=== PATIENT | male | born 1990 | race Caucasian/White ===

== ENCOUNTER 2019-12-24 09:25 | Inpatient (IN) ==
[2019-12-24] MEDS ORDERED: IOPAMIDOL 100 ML BOTTLE IV ONE (09:26)
[2019-12-24] MEDS ORDERED: ONDANSETRON 4 MG/2 ML VIAL IV ONE (09:44)
--- NOTE | 2019-12-24 09:50 | Emergency Department Note ---
Abdominal Pain HPI General Chief Complaint: Abdominal Pain Stated Complaint: abd pain Time Seen by Provider: 12/24/19 09:40 Source: patient Mode of arrival: ambulatory Limitations: no limitations History of Present Illness HPI Narrative: This patient has been having difficulty with abdominal pain and thought it was had constipation for about the last week. He has been having trouble having bowel movements. He has tried GoLYTELY and mag citrate without much results. He has been having some watery effluent but not full stool. He had an x-ray yesterday minor care which showed some gas and may be some stool. He continues to have gas and bloating and slight nausea. Related Data Home Medications Medication Instructions Recorded Confirmed cetirizine 10 mg tablet 10 mg PO QDAY 01/13/19 11/01/19 diphenhydramine HCl 50 mg PO HS 07/08/19 11/01/19 loratadine 10 mg PO DAILY 07/08/19 11/01/19 sertraline 25 mg PO HS 07/08/19 11/01/19 Previous Rx's Medication Instructions Recorded hydroxyzine HCl 25 mg tablet 25 mg PO TID PRN #60 tab 02/08/19 ondansetron 4 mg disintegrating 4 mg PO Q6H PRN #10 tab 12/23/19 tablet Allergies Allergy/AdvReac Type Severity Reaction Status Date / Time hay fever Allergy Unknown Nasal Uncoded 11/01/19 14:54 Discharge Review of Systems All systems ED: reviewed and negative except as stated. [facility] Medical/Surgical/Family History All Active Problems (Updated 12/24/19 @ 12:30 by Dequan Randle MD) Acute hyponatremia (Acute) Acute hypokalemia (Acute) Ankle sprain and strain (Acute) Scoliosis (Chronic) Strain of lumbar paraspinal muscle (Chronic) Constipation (Chronic) Allergic rhinitis (Acute) Marijuana use (Chronic) Tic disorder (Chronic) Chronic sinusitis (Chronic) Infantile cerebral palsy (Chronic) Kidney stones (Chronic) Anxiety (Chronic) Medical History (Updated 12/24/19 @ 12:30 by Dequan Randle MD) Anxiety (Chronic) Chronic sinusitis (Chronic) Infantile cerebral palsy (Chronic) Kidney stones (Chronic) Marijuana use (Chronic) Tic disorder (Chronic) Surgical History H/O eye surgery (Chronic) Bilateral surgery due to strabismus H/O inguinal hernia repair (Chronic) as infant Family History Mother Arthritis Grandmother Hypertension, essential Maternal Thyroid disease Maternal Grandfather Heart attack Maternal Unknown Allergic rhinitis Diabetes Heart disease Social History Smoking Status: Never smoker Alcohol Intake Frequency: does not drink Substance Use: marijuana Exam General Limitations: no limitations Head Head: atraumatic Eye Eye: Present normal appearance ENT ENT: Present normal exam Chest Chest: Present normal inspection Respiratory Respiratory: Present normal lung sounds bilaterally Cardiovascular Cardiovascular: Present regular rate, normal rhythm and normal heart sounds Adbominal Abdominal: Present soft, distention, tenderness and hyperactive bowel sounds; Absent guarding, rebound, rigidity and organomegaly Expanded Abdominal Abdominal Tenderness: Present diffuse and mild Neurological Neurological: Present alert Psychiatric Psychiatric: Present normal affect Skin Skin: Present warm and dry Course Vital Signs Vital signs: Vital Signs Temperature 96.7 F L 12/24/19 09:25 Pulse Rate 95 H 12/24/19 09:25 Respiratory Rate 16 12/24/19 09:25 Blood Pressure 128/86 12/24/19 09:25 Pulse Oximetry (%) 97 12/24/19 09:25 Temperature 96.7 F L 12/24/19 09:25 Pulse Rate 83 12/24/19 12:06 Respiratory Rate 16 12/24/19 09:25 Blood Pressure 150/89 12/24/19 12:06 Pulse Oximetry (%) 98 12/24/19 12:06 [facility] Lab Data Lab results reviewed: Yes I reviewed the patient's lab results. Lab results narrative: Patient CT scan was unremarkable but his sodium was 120 and potassium 2.8. I discussed this case with the hospitalist and he will admit him observation to correct his electrolytes. Result diagrams: 12/24/19 09:59 12/24/19 09:59 Labs: Lab Results 12/24/19 12/24/19 Range/Units 09:59 09:59 WBC 12.3 H (4.50-11.00) K/mcL RBC 4.13 L (4.63-6.08) M/mcL Hgb 12.1 L (13.7-17.5) g/dL Hct 32.7 L (40.1-51.0) % MCV 79.2 L (80.0-100.0) fL MCH 29.3 (26.0-34.0) pg MCHC 37.0 H (31.0-36.0) g/dL RDW 11.8 (11.5-14.5) % Plt Count 256 (140-440) K/mcL MPV 10.2 (7.4-10.4) fL Gran % 81.8 H (38.0-78.0) % Lymph % (Auto) 8.6 L (15.5-49.0) % [place] % (Auto) 9.3 (1.0-12.0) % Eos % (Auto) 0.1 (0.0-7.0) % Baso % (Auto) 0.2 (0.0-2.0) % Gran # 10.09 H (1.80-8.00) K/mcL Lymph # (Auto) 1.06 L (1.50-4.80) K/mcL [place] # (Auto) 1.14 H (0.10-0.90) K/mcL Eos # (Auto) 0.01 (0.00-0.70) K/mcL Baso # (Auto) 0.02 (0.00-0.30) K/mcL Sodium 120 L (133-145) mmol/L Potassium 2.8 L* (3.3-5.1) mmol/L Chloride 81 L (96-108) mmol/L Carbon Dioxide 20 L (22-30) mmol/L Anion Gap 19.0 H (8-16) BUN 8 (6-20) mg/dl Creatinine 0.6 L (0.7-1.2) mg/dl GFR Calculation 135 Glucose 124 H (70-105) mg/dL Calcium 9.1 (8.6-10.4) mg/dl Total Bilirubin 0.7 (0.0-1.0) mg/dL AST 18 (0-37) U/l ALT 14 (0-40) U/l Alkaline Phosphatase 82 (39-117) U/L Total Protein 7.6 (5.9-8.4) gm/dL Albumin 4.7 (3.2-5.2) gm/dL Globulin 2.9 (2.2-3.7) gm/dL Albumin/Globulin Ratio 1.6 (1.0-2.3) Lipase 17 (7-60) U/L Radiology Data Radiology results reviewed: Yes I reviewed the patient's radiology results. Discharge Plan Patient/Caregiver Discharge Instructions Pt seen by MODEL DRESSER/PA only: No Clinical Impression: Acute hyponatremia, Acute hypokalemia Prescriptions: No Action cetirizine [All Day Allergy Relief(cetir)] 10 mg tablet 10 mg PO QDAY RF: 0 ondansetron 4 mg tablet,disintegrating 4 mg PO Q6H PRN (Reason: nausea and vomiting) Qty: 10 RF: 0 hydroxyzine HCl 25 mg tablet 25 mg PO TID PRN (Reason: itching) Qty: 60 RF: 0 diphenhydramine HCl 25 MG capsule 50 mg PO HS RF: 0 loratadine 10 MG tablet 10 mg PO DAILY RF: 0 sertraline 25 MG tablet 25 mg PO HS RF: 0 Follow up with: Steven Regan DO [Primary Care Provider] - Patient Disposition: Xfer As Outpt/Obs ([facility])
[2019-12-24] MEDS: HYDROmorphone 0.5 MG/0.5 ML SYRINGE IV PRN ×2 (10:04→13:05)
--- NOTE | 2019-12-24 10:43 | Cat Scan Report ---
INDICATION: Abdominal pain and bloating COMPARISON: Plain film examinations dated 12/23/2019 and 01/18/2019. Previous CT scan dated 02/16/2014 TECHNIQUE: Axial images were obtained through the abdomen and pelvis. Sagittally and coronally reformatted images. 80 mL Isovue 370 injected intravenously. Oral contrast material was not administered FINDINGS: Lung bases:Negative. No pulmonary parenchymal nodule. No pleural fluid or pericardial fluid Liver:Liver is negative. No focal intrahepatic abnormality. The left lobe is large and there is fat deposition bilateral fissure for the ligamentum teres. No discrete mass. Liver contour is smooth. Gallbladder, bilary:No calcified gallstones. No gallbladder wall thickening. No dilated intra or extrahepatic bile ducts. Spleen:No splenomegaly. Normal enhancement of splenic and portal veins. Pancreas:No pancreatic mass. No peripancreatic abnormality Adrenal glands:Negative Kidneys, ureters, bladder:No solid or cystic renal mass. No hydronephrosis. No obstructing calculi. There is no hydroureter. No ureteral stone No bladder calculi or detectable mass Gastrointestinal:No detectable colonic mass. There is no diverticulitis. There is intestinal nonrotation with the cecum being in the midline pelvis. Small bowel is predominantly right-sided but otherwise negative. No mechanical small bowel obstruction. Stomach and duodenum are unremarkable Appendix: The appendix is deep in the pelvis and normal Vascular:Negative abdominal aorta. Superior mesenteric artery and celiac trunk are normal. Normal opacification of the inferior mesenteric artery Lymphatic:No retroperitoneal or mesenteric adenopathy Mesentery, peritoneum: No free intraperitoneal fluid. No mesenteric or retroperitoneal mass. Reproductive:Prostate is not enlarged Musculoskeletal:No lumbar compression fractures. Sacrum and pelvis are negative. No hip fracture. IMPRESSION: 1. Intestinal malrotation 2. No acute abnormality The exam was performed using radiation dose optimization techniques including, but not limited to, automated exposure control, adjustment of the mA and/or kV according to patient size and use of iterative reconstruction technique. Interpreted and Authenticated by: Steven Iraheta 12/24/19
[2019-12-24 10:44] LABS: Basophils # (Auto) 0.02 K/mcL (0.00-0.30); Basophils % (Auto) 0.2 % (0.0-2.0); Eosinophils # (Auto) 0.01 K/mcL (0.00-0.70); Eosinophils % (Auto) 0.1 % (0.0-7.0); Granulocytes % (Auto) 81.8 % (38.0-78.0); Hematocrit 32.7 % (40.1-51.0); Hemoglobin 12.1 g/dL (13.7-17.5); Lymphocytes # (Auto) 1.06 K/mcL (1.50-4.80); Lymphocytes % (Auto) 8.6 % (15.5-49.0); Mean Cell Volume 79.2 fL (80.0-100.0); Mean Platelet Volume 10.2 fL (7.4-10.4); Monocytes # (Auto) 1.14 K/mcL (0.10-0.90); Monocytes % (Auto) 9.3 % (1.0-12.0); Platelet Count 256 K/mcL (140-440); RBC 4.13 M/mcL (4.63-6.08); Red Cell Distribution Width 11.8 % (11.5-14.5); WBC 12.3 K/mcL (4.50-11.00)
[2019-12-24 10:59] LABS: ALT/SGPT 14 U/l (0-40); AST/SGOT 18 U/l (0-37); Albumin 4.7 gm/dL (3.2-5.2); Albumin/Globulin Ratio 1.6 (1.0-2.3); Alkaline Phosphatase 82 U/L (39-117); Bilirubin,Total 0.7 mg/dL (0.0-1.0); Blood Urea Nitrogen 8 mg/dl (6-20); Calcium 9.1 mg/dl (8.6-10.4); Carbon Dioxide 20 mmol/L (22-30); Globulin 2.9 gm/dL (2.2-3.7); Glomerular Filtration Rate 135; Glucose 124 mg/dL (70-105)
[2019-12-24 11:17] LABS: Chloride 81 mmol/L (96-108)
[2019-12-24] MEDS: LACTATED RINGERS 1,000 ML IV SCH ×2 (12:03→14:09)
--- NOTE | 2019-12-24 12:59 | Internal Med History&Physical ---
HPI History of Present Illness Patient information: Note initiated : 12/24/19 at 12:53 pm Service Date, if different from initiated Date: [] Patient: Jose Echavarria a 29 y/o M admitted on for abd pain. Chief Complaint: [] History of present illness: Mr. Echavarria is a 29 year old M Presents to the ED with abdominal pain. He states is been dealing with constipation past few days and went to [place] and received GoLYTELY as well as mag citrate. Is been having a watery stools described as light yellow since then. He still feels abdominal pain did have an x-ray yesterday monitor which showed some gas. He did try some gas pills yesterday which helped a little bit for short time. Today in the ED a CT abdomen pelvis was done which showed some bowel malrotation but no other acute findings. Laboratory significant for sodium of 120 and a potassium 2.8. Patient is on an SSRI for which he is been on for 5 years. Has been drinking several bottles of water a day to try to keep up with fluid intake. Did have some nausea vomiting past 24 hours x 2. Review of Systems: Positive as above. Denies headache/fever/chills/chest pain/cough/dyspnea. Remaining 10 point review of system reviewed negative PFSH PFSH Medical History (Updated 12/24/19 @ 15:56 by Karly Paul MD) Anxiety (Chronic) Chronic sinusitis (Chronic) Infantile cerebral palsy (Chronic) Kidney stones (Chronic) Marijuana use (Chronic) Tic disorder (Chronic) Surgical History H/O eye surgery (Chronic) Bilateral surgery due to strabismus H/O inguinal hernia repair (Chronic) as infant Family History Mother Arthritis Grandmother Hypertension, essential Maternal Thyroid disease Maternal Grandfather Heart attack Maternal Unknown Allergic rhinitis Diabetes Heart disease Social History marital status: single smoking status: Never smoker alcohol intake frequency: does not drink substance use type: marijuana MEDS/ALLERGIES Home Medications and Allergies Home Medications Medication Instructions Recorded Confirmed Type cetirizine 10 mg tablet 10 mg PO QDAY 01/13/19 12/24/19 History hydroxyzine HCl 25 mg tablet 25 mg PO TID PRN #60 tab 02/08/19 12/24/19 Rx diphenhydramine HCl 50 mg PO HS 07/08/19 12/24/19 History sertraline 25 mg PO HS 07/08/19 12/24/19 History ondansetron 4 mg disintegrating 4 mg PO Q6H PRN #10 tab 12/23/19 12/24/19 Rx tablet Allergies Allergy/AdvReac Type Severity Reaction Status Date / Time hay fever Allergy Unknown Nasal Uncoded 11/01/19 14:54 Discharge EXAM Constitutional Vitals: Temp Pulse Resp BP Pulse Ox 96.7 F L 98 H 24 H 141/98 99 12/24/19 09:25 12/24/19 12:46 12/24/19 12:46 12/24/19 12:46 12/24/19 12:46 Exam: General: Alert, Awake, No acute Distress Eyes/N/T: EOMI, PERRL, Head/Neck: neck supple, normocephalic atraumatic CV: RRR, No murmurs, normal s1/s2 Pulm: Clear b/l, no wheezing/rhonchi/rales Abd: soft, mild TTP periumbilical, +BS x4 Ext: no clubbing/cyanosis/edema Neuro: Alert, no focal deficits, moves all extremities, CN 2-12 grossly intact, symmetrical strength b/l upper/lower, sensations intact b/l upper/lower Skin: warm/dry DATA Data Completed and Pending Labs on day of discharge: Labs from last 24 hours 12/24/19 12/24/19 09:59 09:59 WBC 12.3 H RBC 4.13 L Hgb 12.1 L Hct 32.7 L MCV 79.2 L MCH 29.3 MCHC 37.0 H RDW 11.8 Plt Count 256 MPV 10.2 Gran % 81.8 H Lymph % (Auto) 8.6 L [place] % (Auto) 9.3 Eos % (Auto) 0.1 Baso % (Auto) 0.2 Gran # 10.09 H Lymph # (Auto) 1.06 L [place] # (Auto) 1.14 H Eos # (Auto) 0.01 Baso # (Auto) 0.02 Sodium 120 L Potassium 2.8 L* Chloride 81 L Carbon Dioxide 20 L Anion Gap 19.0 H BUN 8 Creatinine 0.6 L GFR Calculation 135 Glucose 124 H Calcium 9.1 Total Bilirubin 0.7 AST 18 ALT 14 Alkaline Phosphatase 82 Total Protein 7.6 Albumin 4.7 Globulin 2.9 Albumin/Globulin Ratio 1.6 Lipase 17 A/P Narrative A/P Narrative: A: *Hyponatremia/hypokalemia/hypochloremia: likely 2/2 laxatives, however, is on SSRI *Cerebral Palsy, mild deficits: *Anxiety: on SSRI *Intestinal malrotation *bloating/abd discomfort: likely 2/2 malrotation P: -repeat BMP pending, monitor sodium -urine studies/osmo -TSH pending -Calcium replacement, check mag -Dr. Paul consult regarding malroation -simethicone - -ppx: SCD/Ambulation Time Spent With Patient Time: Total time spent is greater than 50% in coordination of care (as documented) at patient's floor/unit and/or counseling patient:
[2019-12-24] MEDS ORDERED: POTASSIUM CHLORIDE 40 MEQ in DEXTROSE 5% IN WATER 500 ML IV ONE (13:30)
[2019-12-24 13:40] LABS: Thyroid Stimulating Hormone 2.29 uIU/ml (0.27-5.01)
[2019-12-24 14:09] LABS: Appearance,Urine CLEAR; Bacteria,Urine 0 /hpf (0); Bilirubin,Urine NEG (NEG); Color,Urine STRAW; Culture Indicated,Urine NO; Glucose,Urine (UA) NEGATIVE (NEG); Ketones,Urine 20 mg/dL (NEG); Leukocyte Esterase,Urine NEG /uL (NEG); Mucus,Urine FEW /hpf (0); Nitrate,Urine NEG (NEG); Protein,Urine NEG (NEG); Urine Blood 0.03 mg/dL (<0.03); Urine RBC 0 /hpf (0-1); Urine Squamous Epithelial Cell 0 /hpf (0-4); Urine WBC 1 /hpf (0-4); Urobilinogen,Urine NEG (NEG)
[2019-12-24 14:17] LABS: Osmolality,Urine 433 mOsm/kg (80-1000); Sodium, Urine Random 57 mmol/L
[2019-12-24] MEDS ORDERED: SIMETHICONE 80 MG TAB.CHEW CHEWED PRN (14:25)
[2019-12-24] MEDS ORDERED: MAGNESIUM SULFATE 2 GM/50 ML BAG IV PRN (14:25)
[2019-12-24] MEDS ORDERED: POTASSIUM CHLORIDE 20 MEQ TABLET PO PRN (14:25)
[2019-12-24] MEDS ORDERED: POTASSIUM CHLORIDE 40 MEQ in DEXTROSE 5% IN WATER 500 ML IV PRN (14:25)
[2019-12-24] MEDS ORDERED: METOCLOPRAMIDE 10 MG/2 ML VIAL IV PRN (14:25)
[2019-12-24] MEDS ORDERED: ACETAMINOPHEN 325 MG TABLET PO PRN (14:25)
[2019-12-24] MEDS ORDERED: SENNOSIDES 1 TABLET PO PRN (14:25)
[2019-12-24] MEDS ORDERED: 0.9 % SODIUM CHLORIDE 1,000 ML IV SCH (14:25)
[2019-12-24] MEDS: 0.9 % SODIUM CHLORIDE 10 ML SYRINGE IV SCH ×2 (15:15→21:33)
[2019-12-24 15:42] LABS: POC Blood Urea Nitrogen 4 mg/dl (6-20); POC CO2 25 mmol/L (22-30); POC Calcium, Ionized 1.11 mmol/L (1.16-1.32); POC Chloride 83 mmol/L (96-108); POC Creatinine 0.4 mg/dl (0.7-1.2); POC Glucose, Random 140 mg/dL (70-105); POC Sodium 123 mmol/L (133-145)
[2019-12-24 15:46] LABS: Blood Urea Nitrogen 8 mg/dl (6-20); Calcium 8.9 mg/dl (8.6-10.4); Carbon Dioxide 21 mmol/L (22-30); Chloride 82 mmol/L (96-108); Glomerular Filtration Rate 145; Glucose 110 mg/dL (70-105)
--- NOTE | 2019-12-24 15:57 | General Surgery Consult Note ---
HPI Data of Consult Primary Care Provider: Steven Regan Consult Narrative Patient Information: Note initiated : 12/24/19 at 3:41 pm Service Date, if different from initiated Date: [] Patient: Jose Echavarria 29 y/o M admitted on 12/24/19 for abd pain. Chief Complaint: [] 29-year-old male with history of infantile cerebral palsy who presents to the emergency room with complaints of progressive constipation with nausea and vo miting with associated hyponatremia and hypokalemia. Patient has had worsening symptoms of constipation intermittently but it became much worse in January 2019. He has been treated with increasing doses of MiraLAX and other laxatives but symptoms have become much worse over the past 4 days. He has been seen in the emergency room 3 prior to this evaluation. CT was finally done and it shows malrotation of the small bowel and colon with colon being totally on the left side of the body and the small bowel on the right. Mother states that she has tried increasing doses of MiraLAX but even this causes increased bloating. 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 This was explained to the mother and to the patient. A small bowel follow through will be done tomorrow and I will discuss this with the radiologist to look for proximal duodenal or jejunal dilation with normal caliber bowel distal to that area. This should be diagnostic of obstruction due to Jenn'S bands. cc:: CC: Bashir Garza Review of Systems All systems: reviewed and no additional remarkable complaints except as stated PFSH [facility] Medical History (Updated 12/24/19 @ 15:56 by Karly Paul MD) Anxiety (Chronic) Chronic sinusitis (Chronic) Infantile cerebral palsy (Chronic) Kidney stones (Chronic) Marijuana use (Chronic) Tic disorder (Chronic) Surgical History H/O eye surgery (Chronic) Bilateral surgery due to strabismus H/O inguinal hernia repair (Chronic) as Family History Mother Arthritis Grandmother Hypertension, essential Maternal Thyroid disease Maternal Grandfather Heart attack Maternal Unknown Allergic rhinitis Diabetes Heart disease Social History marital status: single smoking status: Never smoker alcohol intake frequency: does not drink substance use type: marijuana MEDS/ALLERGIES Home Medications and Allergies Home Medications Medication Instructions Recorded Confirmed Type cetirizine 10 mg tablet 10 mg PO QDAY 01/13/19 12/24/19 History hydroxyzine HCl 25 mg tablet 25 mg PO TID PRN #60 tab 02/08/19 12/24/19 Rx diphenhydramine HCl 50 mg PO HS 07/08/19 12/24/19 History sertraline 25 mg PO HS 07/08/19 12/24/19 History ondansetron 4 mg disintegrating 4 mg PO Q6H PRN #10 tab 12/23/19 12/24/19 Rx tablet Allergies Allergy/AdvReac Type Severity Reaction Status Date / Time hay fever Allergy Unknown Nasal Uncoded 11/01/19 14:54 Discharge Physical Examination Vital Signs Vital signs: Temp Pulse Resp BP Pulse Ox 98.3 F 103 H 18 149/83 96 12/24/19 15:22 12/24/19 15:22 12/24/19 15:22 12/24/19 15:22 12/24/19 15:22 General physical appearance General physical exam: no distress, moderate pain and other (patient is THIN with long arms in digits and small frame.) Eyes Eye exam: PERRL, normal ocular movement and pale ENT ENT exam: normal pinna, normal nares, normal mucosa and no hearing loss; negative no congestion, decreased hearing, deviated nasal septum, nasal discharge, poor prison, dentures, mucosal exudate and other Head Head exam IM: Present atraumatic, normal inspection and normocephalic Neck Neck exam: no masses, no bruits, trachea midline and no lymphadenopathy Cardiovascular Cardiovascular exam IM: Present normal rate and rhythm, RRR, +S1 and +S2; Absent gallop, JVD and systolic murmur Respiratory Respiratory exam: normal expansion, normal respiratory effort, clear to pe rcussion, clear to auscultation and other Abdomen Abdomen: Present soft, tender, bowel sounds and distended (mild distention with tenderness to the right of midline in the epigastrium) Integumentary Integumentary: Present no rash, no growths, no abnormal pigmentation and other Neurologic Neurologic: Present normal coordination and normal sensation Musculoskeletal Musculoskeletal: Present normal gait Psychiatric Psychiatric: Present oriented to time, oriented to person, oriented to place and speech is normal Results Labs Result diagrams: 12/24/19 09:59 12/24/19 13:08 Labs: Abnormal lab results 12/24/19 12/24/19 12/24/19 Range/Units 09:59 09:59 09:59 WBC 12.3 H (4.50-11.00) K/mcL RBC 4.13 L (4.63-6.08) M/mcL Hgb 12.1 L (13.7-17.5) g/dL Hct 32.7 L (40.1-51.0) % MCV 79.2 L (80.0-100.0) fL MCHC 37.0 H (31.0-36.0) g/dL Gran % 81.8 H (38.0-78.0) % Lymph % (Auto) 8.6 L (15.5-49.0) % Gran # 10.09 H (1.80-8.00) K/mcL Lymph # (Auto) 1.06 L (1.50-4.80) K/mcL [place] # (Auto) 1.14 H (0.10-0.90) K/mcL Sodium 120 L (133-145) mmol/L Potassium 2.8 L* (3.3-5.1) mmol/L Chloride 81 L (96-108) mmol/L Carbon Dioxide 20 L (22-30) mmol/L Anion Gap 19.0 H (8-16) Creatinine 0.6 L (0.7-1.2) mg/dl Glucose 124 H (70-105) mg/dL Osmolality 251 L (280-300) mOSM/kg Cortisol AM Sample (6.2-19.4) ug/dl Urine Ketones (NEG) mg/dL Urine Occult Blood (<0.03) mg/dL 12/24/19 12/24/19 Range/Units 09:59 13:00 WBC (4.50-11.00) K/mcL RBC (4.63-6.08) M/mcL Hgb (13.7-17.5) g/dL Hct (40.1-51.0) % MCV (80.0-100.0) fL MCHC (31.0-36.0) g/dL Gran % (38.0-78.0) % Lymph % (Auto) (15.5-49.0) % Gran # (1.80-8.00) K/mcL Lymph # (Auto) (1.50-4.80) K/mcL [place] # (Auto) (0.10-0.90) K/mcL Sodium (133-145) mmol/L Potassium (3.3-5.1) mmol/L Chloride (96-108) mmol/L Carbon Dioxide (22-30) mmol/L Anion Gap (8-16) Creatinine (0.7-1.2) mg/dl Glucose (70-105) mg/dL Osmolality (280-300) mOSM/kg Cortisol AM Sample 54.9 H (6.2-19.4) ug/dl Urine Ketones 20 A (NEG) mg/dL Urine Occult Blood 0.03 A (<0.03) mg/dL Diabetes panel 12/24/19 12/24/19 Range/Units 09:59 09:59 Sodium 120 L TNP (133-145) mmol/L Potassium 2.8 L* TNP (3.3-5.1) mmol/L Chloride 81 L TNP (96-108) mmol/L Carbon Dioxide 20 L TNP (22-30) mmol/L BUN 8 TNP (6-20) mg/dl Creatinine 0.6 L TNP (0.7-1.2) mg/dl Glucose 124 H TNP (70-105) mg/dL Calcium 9.1 TNP (8.6-10.4) mg/dl AST 18 (0-37) U/l ALT 14 (0-40) U/l Alkaline Phosphatase 82 (39-117) U/L Total Protein 7.6 (5.9-8.4) gm/dL Albumin 4.7 (3.2-5.2) gm/dL Thyroid panel 12/24/19 Range/Units 09:59 TSH 2.29 (0.27-5.01) uIU/ml Calcium panel 12/24/19 12/24/19 Range/Units 09:59 09:59 Calcium 9.1 TNP (8.6-10.4) mg/dl Albumin 4.7 (3.2-5.2) gm/dL Pituitary panel 12/24/19 12/24/19 Range/Units 09:59 09:59 Sodium 120 L TNP (133-145) mmol/L Potassium 2.8 L* TNP (3.3-5.1) mmol/L Chloride 81 L TNP (96-108) mmol/L Carbon Dioxide 20 L TNP (22-30) mmol/L BUN 8 TNP (6-20) mg/dl Creatinine 0.6 L TNP (0.7-1.2) mg/dl Glucose 124 H TNP (70-105) mg/dL Calcium 9.1 TNP (8.6-10.4) mg/dl TSH 2.29 (0.27-5.01) uIU/ml Adrenal panel 12/24/19 12/24/19 Range/Units 09:59 09:59 Sodium 120 L TNP (133-145) mmol/L Potassium 2.8 L* TNP (3.3-5.1) mmol/L Chloride 81 L TNP (96-108) mmol/L Carbon Dioxide 20 L TNP (22-30) mmol/L BUN 8 TNP (6-20) mg/dl Creatinine 0.6 L TNP (0.7-1.2) mg/dl Glucose 124 H TNP (70-105) mg/dL Calcium 9.1 TNP (8.6-10.4) mg/dl Total Bilirubin 0.7 (0.0-1.0) mg/dL AST 18 (0-37) U/l ALT 14 (0-40) U/l Alkaline Phosphatase 82 (39-117) U/L Total Protein 7.6 (5.9-8.4) gm/dL Albumin 4.7 (3.2-5.2) gm/dL All other labs normal. A/P Assessment and plan (1) Malrotation of intestine: Assessment and plan: upper GI with small bowel follow-through to be performed tomorrow to rule out partial proximal small bowel obstruction Status: Acute (2) Acute hypokalemia: Status: Acute (3) Acute hyponatremia: Status: Acute (4) Constipation: Status: Chronic Qualifiers: Constipation type: outlet dysfunction constipation Qualified Code(s): K59.02 - Outlet dysfunction constipation (5) Marijuana use: Status: Chronic (6) Tic disorder: Status: Chronic (7) Infantile cerebral palsy: Status: Chronic Time Spent With Patient Time: Total time spent is greater than 50% in coordination of care (as documented) at patient's floor/unit and/or counseling patient:
[2019-12-24] MEDS: ONDANSETRON 4 MG/2 ML VIAL IV PRN (18:45)
[2019-12-24 19:11] LABS: POC Blood Urea Nitrogen < 3 mg/dl (6-20); POC CO2 26 mmol/L (22-30); POC Calcium, Ionized 1.05 mmol/L (1.16-1.32); POC Chloride 80 mmol/L (96-108); POC Creatinine 0.4 mg/dl (0.7-1.2); POC Glucose, Random 131 mg/dL (70-105); POC Potassium 2.9 mmol/L (3.3-5.1); POC Sodium 120 mmol/L (133-145)
[2019-12-24] MEDS ORDERED: SODIUM CHLORIDE 1 GM TABLET PO ONE (19:22)
[2019-12-24] MEDS ORDERED: hydrOXYzine 25 MG TABLET PO PRN (19:25)
[2019-12-24] MEDS ORDERED: POTASSIUM CHLORIDE 20 MEQ PACKET PO ONE (19:25)
[2019-12-24] MEDS: SERTRALINE 50 MG TABLET PO SCH (20:11)
[2019-12-25] MEDS: 0.9 % SODIUM CHLORIDE 10 ML SYRINGE IV SCH ×3 (06:01→22:03)
[2019-12-25 06:36] LABS: Basophils # (Auto) 0.01 K/mcL (0.00-0.30); Basophils % (Auto) 0.1 % (0.0-2.0); Eosinophils # (Auto) 0 K/mcL (0.00-0.70); Eosinophils % (Auto) 0 % (0.0-7.0); Granulocytes % (Auto) 72.8 % (38.0-78.0); Hematocrit 33.9 % (40.1-51.0); Hemoglobin 12.1 g/dL (13.7-17.5); Lymphocytes # (Auto) 1.61 K/mcL (1.50-4.80); Lymphocytes % (Auto) 15.9 % (15.5-49.0); Mean Cell Volume 81.3 fL (80.0-100.0); Mean Corpuscular HGB Conc 35.7 g/dL (31.0-36.0); Mean Platelet Volume 10.4 fL (7.4-10.4); Monocytes # (Auto) 1.13 K/mcL (0.10-0.90); Monocytes % (Auto) 11.2 % (1.0-12.0); Platelet Count 254 K/mcL (140-440); RBC 4.17 M/mcL (4.63-6.08); Red Cell Distribution Width 11.9 % (11.5-14.5); WBC 10.1 K/mcL (4.50-11.00)
[2019-12-25 06:58] LABS: ALT/SGPT 13 U/l (0-40); AST/SGOT 16 U/l (0-37); Albumin 4.3 gm/dL (3.2-5.2); Albumin/Globulin Ratio 1.5 (1.0-2.3); Alkaline Phosphatase 80 U/L (39-117); Bilirubin,Direct < 0.2 mg/dL (0.0-0.3); Bilirubin,Total 0.6 mg/dL (0.0-1.0); Calcium 8.9 mg/dl (8.6-10.4); Globulin 2.8 gm/dL (2.2-3.7); Glomerular Filtration Rate 135; Glucose 138 mg/dL (70-105); Lactate Dehydrogenase 185 U/L (94-250); Triglycerides 59 mg/dl (<150); Uric Acid 2.5 mg/dL (2.5-8.0)
[2019-12-25 06:59] LABS: Blood Urea Nitrogen 2 mg/dl (6-20); Carbon Dioxide 24 mmol/L (22-30); Chloride 81 mmol/L (96-108); Phosphorous 2.3 mg/dL (2.7-4.5)
[2019-12-25] MEDS: POTASSIUM CHLORIDE 20 MEQ TABLET PO PRN (08:15)
--- NOTE | 2019-12-25 08:17 | Internal Med Progress Note ---
SUBJECTIVE Subjective Patient information: Note initiated : 12/25/19 at 8:10 am Service Date, if different from initiated Date: [] Patient: Jose Echavarria 29 y/o M admitted on 12/24/19 for abd pain. Chief Complaint: [] Interval history: History of present illness: Mr. Echavarria is a 29 year old M Presents to the ED with abdominal pain. He states is been dealing with constipation past few days and went to [facility] and received GoLYTELY as well as mag citrate. Is been having a watery stools described as light yellow since then. He still feels abdominal pain did have an x-ray yesterday monitor which showed some gas. He did try some gas pills yesterday which helped a little bit for short time. Today in the ED a CT abdomen pelvis was done which showed some bowel malrotation but no other acute findings. Laboratory significant for sodium of 120 and a potassium 2.8. Patient is on an SSRI for which he is been on for 5 years. Has been drinking several bottles of water a day to try to keep up with fluid intake. Did have some nausea vomiting past 24 hours x 2. 12/24 Abdominal bloating present but a little bit better today. No nausea or vom iting. No new complaints. Small bowel follow-through this morning. Review of Systems: denies headache/fever/chills/nausea/vomiting/chest pain/cough/dyspnea. Otherwise see above. Constitutional Vitals: Vital Signs Temp Pulse Resp BP Pulse Ox 98.3 F 82 16 124/68 98 12/25/19 04:00 12/25/19 04:00 12/25/19 04:00 12/25/19 04:00 12/25/19 04:00 Period Temp Pulse Resp BP Sys/Hanley Pulse Ox Last 24 Hr 96.7 F-98.7 F 82-103 12-24 124-150/68-98 96-99 Intake and Output 12/24/19 12/25/19 12/25/19 21:59 05:59 13:59 Intake Total 765 1880 Output Total 950 Balance -185 1880 Weight 53.751 kg Intake & Output: Intake & Output 12/24/19 12/25/19 12/25/19 21:59 05:59 13:59 Intake Total 765 1880 Output Total 950 Balance -185 1880 Weight 53.751 kg Intake: IV 525 1520 Lactated Ringers 1,000 ml @ 360 500 4063 mls/hr IV .Q4H [facility] Rx#: [id number] Potassium Chloride 40 Meq In 520 Dextrose 5% in Water 500 ml @ 130 mls/hr IV ONCE ONE Rx#: [id number] Oral 240 360 Output: Void Amount 950 Other: Urine Appearance Clear Urine Color Pale Urine Odor Normal Stool Size Small Small Stool Color Brown Brown Stool Consistency Loose Loose # Voids 1 3 1 # Bowel Movements 1 Exam: Exam: General: Alert, Awake, No acute Distress Eyes/N/T: EOMI, Head/Neck: neck supple, CV: RRR, No murmurs, Pulm: Clear b/l, no wheezing/rhonchi/rales Abd: soft, mild TTP periumbilical, +BS x4 Ext: no clubbing/cyanosis/edema Neuro: Alert, no focal deficits, moves all extremities, Skin: warm/dry OBJ DATA Labs CBC & Chem 7: 12/25/19 05:40 12/25/19 05:40 Labs: Abnormal Lab Results 12/25/19 12/25/19 12/24/19 05:40 05:40 18:58 WBC RBC 4.17 L Hgb 12.1 L Hct 33.9 L POC Hct 32.0 L MCV MCHC Gran % Lymph % (Auto) Gran # Lymph # (Auto) [place] # (Auto) 1.13 H POC Sodium 120 L Sodium 121 L POC Potassium 2.9 L* Potassium 3.2 L POC Chloride 80 L Chloride 81 L Carbon Dioxide Anion Gap POC BUN < 3 L BUN 2 L Creatinine 0.6 L POC Creatinine 0.4 L Glucose 138 H POC Glucose 131 H Osmolality POC WB Ioniz Calcium 1.05 L Phosphorus 2.3 L Cortisol AM Sample Urine Ketones Urine Occult Blood 12/24/19 12/24/19 12/24/19 13:08 13:00 09:59 WBC RBC Hgb Hct POC Hct 31.0 L MCV MCHC Gran % Lymph % (Auto) Gran # Lymph # (Auto) [place] # (Auto) POC Sodium 123 L Sodium 121 L POC Potassium 3.0 L Potassium 2.9 L* POC Chloride 83 L Chloride 82 L Carbon Dioxide 21 L Anion Gap 18.0 H POC BUN 4 L BUN Creatinine 0.5 L POC Creatinine 0.4 L Glucose 110 H POC Glucose 140 H Osmolality POC WB Ioniz Calcium 1.11 L Phosphorus Cortisol AM Sample 54.9 H Urine Ketones 20 A Urine Occult Blood 0.03 A 12/24/19 12/24/19 12/24/19 09:59 09:59 09:59 WBC 12.3 H RBC 4.13 L Hgb 12.1 L Hct 32.7 L POC Hct MCV 79.2 L MCHC 37.0 H Gran % 81.8 H Lymph % (Auto) 8.6 L Gran # 10.09 H Lymph # (Auto) 1.06 L [place] # (Auto) 1.14 H POC Sodium Sodium 120 L POC Potassium Potassium 2.8 L* POC Chloride Chloride 81 L Carbon Dioxide 20 L Anion Gap 19.0 H POC BUN BUN Creatinine 0.6 L POC Creatinine Glucose 124 H POC Glucose Osmolality 251 L POC WB Ioniz Calcium Phosphorus Cortisol AM Sample Urine Ketones Urine Occult Blood Meds: Medications Acetaminophen (Tylenol) 650 mg PO Q6HP PRN PRN Reason: PAIN/FEVER > 101 Hydroxyzine HCl (Atarax) 25 mg PO TIDP PRN PRN Reason: Itching Potassium Chloride 40 meq/ (Dextrose) 520 mls @ 130 mls/hr IV UD PRN PRN Reason: Potassium < 3 Magnesium Sulfate (Magnesium Sulfate) 2 gm in 50 mls @ 50 mls/hr IV UD PRN PRN Reason: Magnesium </= 1.6 Metoclopramide HCl (Reglan) 10 mg IV Q6HP PRN PRN Reason: Nausea And Vomiting Ondansetron HCl (Zofran) 4 mg IV Q4HP PRN PRN Reason: Nausea And Vomiting Last Admin: 12/24/19 18:45 Dose: 4 mg Documented by: Potassium Chloride (Kdur) 40 meq PO UD PRN PRN Reason: Potssium is 3-3.5 Potassium Chloride (Kdur) 40 meq PO UD PRN PRN Reason: Potassium < 3 Senna (Senokot) 2 tab PO DAILYP PRN PRN Reason: Constipation Sertraline HCl (Zoloft) 25 mg PO HS [facility] Last Admin: 12/24/19 20:11 Dose: 25 mg Documented by: Simethicone (Mylicon) 80 mg CHEWED QIDP PRN PRN Reason: Dyspepsia Sodium Chloride (Saline Flush) 10 ml IV Q8 [facility] Last Admin: 12/25/19 06:01 Dose: Not Given Documented by: Sodium Chloride (Sodium Chloride) 2 gm PO BID [facility] A/P Assessment and plan (1) Malrotation of intestine: Status: Acute (2) Acute hypokalemia: Status: Acute (3) Acute hyponatremia: Status: Acute (4) Constipation: Status: Chronic Qualifiers: Constipation type: outlet dysfunction constipation Qualified Code(s): K59.02 - Outlet dysfunction constipation (5) Marijuana use: Status: Chronic (6) Tic disorder: Status: Chronic (7) Infantile cerebral palsy: Status: Chronic Narrative A/P Narrative: A: *Hyponatremia/hypokalemia/hypochloremia: likely 2/2 laxatives, however, is on SSRI -labs consistent with SIADH *Intestinal malrotation with nausea/bloating/abd discomfort *Cerebral Palsy, mild deficits: *Anxiety/Tic disorder: on SSRI * P: -f/u sodium -fluid restrict, salt tabs -electrolyte replacement prn -Dr. Paul consulting, pending small bowel follow through -simethicone -f/u with pcp regarding SSRI and f/u sodium -ppx: SCD/Ambulation Time Spent With Patient Time: Total time spent is greater than 50% in coordination of care (as documented) at patient's floor/unit and/or counseling patient: QUALITY VTE Deep Vein Thrombosis/Pulmonary Embolism Present on Admission: No
[2019-12-25] MEDS: ONDANSETRON 4 MG/2 ML VIAL IV PRN ×2 (08:25→22:02)
[2019-12-25] MEDS ORDERED: SODIUM CHLORIDE 1 GM TABLET PO SCH (09:00)
--- NOTE | 2019-12-25 10:43 | XRay Report ---
INDICATION: rule out ARIE'S causing proximal small bowel obstr TECHNIQUE: Routine upper GI and small bowel study with barium. 20 seconds fluoroscopy utilized COMPARISON: Chest CT scan dated 12/24/2019 FINDINGS: There is intestinal malrotation with the colon on the left side and the small bowel on the right. There is no obstruction. There is barium in the colon by one hour postingestion. Terminal ileum is suboptimally demonstrated on spot views. There is no obstruction. There is no evidence for volvulus or internal hernia IMPRESSION: 1. Intestinal nonrotation 2. No obstruction. Interpreted and Authenticated by: Steven Iraheta 12/25/19
[2019-12-25] MEDS: SIMETHICONE 80 MG TAB.CHEW CHEWED SCH ×3 (12:02→22:03)
[2019-12-25] MEDS: SODIUM CHLORIDE 1 GM TABLET PO SCH ×2 (15:05→22:03)
[2019-12-25 18:48] LABS: POC Blood Urea Nitrogen < 3 mg/dl (6-20); POC CO2 26 mmol/L (22-30); POC Calcium, Ionized 0.95 mmol/L (1.16-1.32); POC Chloride 81 mmol/L (96-108); POC Creatinine 0.3 mg/dl (0.7-1.2); POC Glucose, Random 143 mg/dL (70-105); POC Potassium 2.6 mmol/L (3.3-5.1); POC Sodium 122 mmol/L (133-145)
[2019-12-25] MEDS: POTASSIUM CHLORIDE 20 MEQ TABLET PO SCH ×2 (19:10→22:03)
[2019-12-25] MEDS: SERTRALINE 50 MG TABLET PO SCH (22:03)
[2019-12-26] MEDS: 0.9 % SODIUM CHLORIDE 10 ML SYRINGE IV SCH ×3 (04:34→20:47)
[2019-12-26 07:00] LABS: ALT/SGPT 11 U/l (0-40); AST/SGOT 13 U/l (0-37); Albumin 4.2 gm/dL (3.2-5.2); Albumin/Globulin Ratio 1.7 (1.0-2.3); Alkaline Phosphatase 74 U/L (39-117); Bilirubin,Direct < 0.2 mg/dL (0.0-0.3); Bilirubin,Total 0.6 mg/dL (0.0-1.0); Calcium 8.8 mg/dl (8.6-10.4); Carbon Dioxide 25 mmol/L (22-30); Globulin 2.5 gm/dL (2.2-3.7); Glomerular Filtration Rate 145; Glucose 160 mg/dL (70-105); Lactate Dehydrogenase 154 U/L (94-250); Triglycerides 39 mg/dl (<150)
[2019-12-26 07:01] LABS: Blood Urea Nitrogen < 2 mg/dl (6-20); Chloride 84 mmol/L (96-108); Phosphorous 1.9 mg/dL (2.7-4.5); Uric Acid 1.1 mg/dL (2.5-8.0)
--- NOTE | 2019-12-26 07:34 | Internal Med Progress Note ---
SUBJECTIVE Subjective Patient information: Note initiated : 12/26/19 at 7:30 am Service Date, if different from initiated Date: [] Patient: Jose Echavarria 29 y/o M admitted on 12/24/19 for abd pain. Chief Complaint: [] Interval history: History of present illness: Mr. Echavarria is a 29 year old M Presents to the ED with abdominal pain. He states is been dealing with constipation past few days and went to [employer] and received GoLYTELY as well as mag citrate. Is been having a watery stools described as light yellow since then. He still feels abdominal pain did have an x-ray yesterday monitor which showed some gas. He did try some gas pills yesterday which helped a little bit for short time. Today in the ED a CT abdomen pelvis was done which showed some bowel malrotation but no other acute findings. Laboratory significant for sodium of 120 and a potassium 2.8. Patient is on an SSRI for which he is been on for 5 years. Has been drinking several bottles of water a day to try to keep up with fluid intake. Did have some nausea vomiting past 24 hours x 2. 12/24 Abdominal bloating present but a little bit better today. No nausea or vomiting. No new complaints. Small bowel follow-through this morning. 12/25 Abdominal bloating and discomfort slowly improving. No nausea or vomiting. No diarrhea. Small bowel follow-through no obstruction. Sodium coming up slowly. Review of Systems: denies headache/fever/chills/nausea/vomiting/chest pain/cough/dyspnea. Otherwise see above. Constitutional Vitals: Vital Signs Temp Pulse Resp BP Pulse Ox 98.1 F 92 H 18 128/91 99 12/26/19 07:22 12/26/19 07:22 12/26/19 07:22 12/26/19 07:22 12/26/19 07:22 Period Temp Pulse Resp BP Sys/Hanley Pulse Ox Last 24 Hr 97.6 F-98.9 F 84-100 16-18 128-158/71-97 96-99 Intake and Output 12/25/19 12/26/19 12/26/19 21:59 05:59 13:59 Intake Total 690 800 Output Total 150 Balance 690 650 Weight 51.664 kg Intake & Output: Intake & Output 12/25/19 12/26/19 12/26/19 21:59 05:59 13:59 Intake Total 690 800 Output Total 150 Balance 690 650 Weight 51.664 kg Intake: Oral 490 600 GI Tube Flush 200 200 Output: Emesis 150 Other: Stool Size Small Small Stool Color Brown Brown Stool Consistency Loose Loose # Voids 1 3 Exam: Exam: General: Alert, Awake, No acute Distress Eyes/N/T: EOMI, Head/Neck: neck supple, CV: RRR, No murmurs, Pulm: Clear b/l, no wheezing/rhonchi/rales Abd: soft, nontender, +BS x4 Ext: no clubbing/cyanosis/edema Neuro: Alert, no focal deficits, moves all extremities, Skin: warm/dry OBJ DATA Labs CBC & Chem 7: 12/25/19 05:40 12/26/19 05:23 Labs: Abnormal Lab Results 12/26/19 12/25/19 12/25/19 05:23 18:33 05:40 WBC RBC Hgb Hct POC Hct 35.0 L MCV MCHC Gran % Lymph % (Auto) Gran # Lymph # (Auto) [place] # (Auto) POC Sodium 122 L Sodium 123 L 121 L POC Potassium 2.6 L* Potassium 3.2 L POC Chloride 81 L Chloride 84 L 81 L Carbon Dioxide Anion Gap POC BUN < 3 L BUN < 2 L 2 L Creatinine 0.5 L 0.6 L POC Creatinine 0.3 L Glucose 160 H 138 H POC Glucose 143 H Osmolality Uric Acid 1.1 L POC WB Ioniz Calcium 0.95 L Phosphorus 1.9 L 2.3 L Cortisol AM Sample Urine Ketones Urine Occult Blood 12/25/19 12/24/19 12/24/19 05:40 18:58 13:08 WBC RBC 4.17 L Hgb 12.1 L Hct 33.9 L POC Hct 32.0 L 31.0 L MCV MCHC Gran % Lymph % (Auto) Gran # Lymph # (Auto) [place] # (Auto) 1.13 H POC Sodium 120 L 123 L Sodium 121 L POC Potassium 2.9 L* 3.0 L Potassium 2.9 L* POC Chloride 80 L 83 L Chloride 82 L Carbon Dioxide 21 L Anion Gap 18.0 H POC BUN < 3 L 4 L BUN Creatinine 0.5 L POC Creatinine 0.4 L 0.4 L Glucose 110 H POC Glucose 131 H 140 H Osmolality Uric Acid POC WB Ioniz Calcium 1.05 L 1.11 L Phosphorus Cortisol AM Sample Urine Ketones Urine Occult Blood 12/24/19 12/24/19 12/24/19 13:00 09:59 09:59 WBC RBC Hgb Hct POC Hct MCV MCHC Gran % Lymph % (Auto) Gran # Lymph # (Auto) [place] # (Auto) POC Sodium Sodium POC Potassium Potassium POC Chloride Chloride Carbon Dioxide Anion Gap POC BUN BUN Creatinine POC Creatinine Glucose POC Glucose Osmolality 251 L Uric Acid POC WB Ioniz Calcium Phosphorus Cortisol AM Sample 54.9 H Urine Ketones 20 A Urine Occult Blood 0.03 A 12/24/19 12/24/19 09:59 09:59 WBC 12.3 H RBC 4.13 L Hgb 12.1 L Hct 32.7 L POC Hct MCV 79.2 L MCHC 37.0 H Gran % 81.8 H Lymph % (Auto) 8.6 L Gran # 10.09 H Lymph # (Auto) 1.06 L [place] # (Auto) 1.14 H POC Sodium Sodium 120 L POC Potassium Potassium 2.8 L* POC Chloride Chloride 81 L Carbon Dioxide 20 L Anion Gap 19.0 H POC BUN BUN Creatinine 0.6 L POC Creatinine Glucose 124 H POC Glucose Osmolality Uric Acid POC WB Ioniz Calcium Phosphorus Cortisol AM Sample Urine Ketones Urine Occult Blood Meds: Medications Acetaminophen (Tylenol) 650 mg PO Q6HP PRN PRN Reason: PAIN/FEVER > 101 Hydroxyzine HCl (Atarax) 25 mg PO TIDP PRN PRN Reason: Itching Potassium Chloride 40 meq/ (Dextrose) 520 mls @ 130 mls/hr IV UD PRN PRN Reason: Potassium < 3 Magnesium Sulfate (Magnesium Sulfate) 2 gm in 50 mls @ 50 mls/hr IV UD PRN PRN Reason: Magnesium </= 1.6 Metoclopramide HCl (Reglan) 10 mg IV Q6HP PRN PRN Reason: Nausea And Vomiting Ondansetron HCl (Zofran) 4 mg IV Q4HP PRN PRN Reason: Nausea And Vomiting Last Admin: 12/25/19 22:02 Dose: 4 mg Documented by: Potassium Chloride (Kdur) 40 meq PO UD PRN PRN Reason: Potssium is 3-3.5 Last Admin: 12/25/19 08:15 Dose: 40 meq Documented by: Potassium Chloride (Kdur) 40 meq PO UD PRN PRN Reason: Potassium < 3 Senna (Senokot) 2 tab PO DAILYP PRN PRN Reason: Constipation Sertraline HCl (Zoloft) 25 mg PO HS [facility] Last Admin: 12/25/19 22:03 Dose: 25 mg Documented by: Simethicone (Mylicon) 80 mg CHEWED QIDP PRN PRN Reason: Dyspepsia Simethicone (Mylicon) [facility] Stop: 12/26/19 08:31 Last Admin: 12/25/19 22:03 Dose: 80 mg Documented by: Sodium Chloride (Saline Flush) 10 ml IV Q8 [facility] Last Admin: 12/26/19 04:34 Dose: 10 ml Documented by: Sodium Chloride (Sodium Chloride) 2 gm PO TID [facility] Last Admin: 12/25/19 22:03 Dose: 2 gm Documented by: A/P Assessment and plan (1) Malrotation of intestine: Status: Acute (2) Acute hypokalemia: Status: Acute (3) Acute hyponatremia: Status: Acute (4) Constipation: Status: Chronic Qualifiers: Constipation type: outlet dysfunction constipation Qualified Code(s): K59.02 - Outlet dysfunction constipation (5) Marijuana use: Status: Chronic (6) Tic disorder: Status: Chronic (7) Infantile cerebral palsy: Status: Chronic Narrative A/P Narrative: A: *Hyponatremia/hypokalemia/hypochloremia: likely 2/2 laxatives, however, is on SSRI -labs consistent with SIADH -sodium improving slowly *Intestinal malrotation with nausea/bloating/abd discomfort *Cerebral Palsy, mild deficits: *Anxiety/Tic disorder: on SSRI * P: -f/u sodium -fluid restrict, salt tabs -electrolyte replacement prn -Dr. Paul following -simethicone -f/u with pcp regarding SSRI and f/u sodium -ppx: SCD/Ambulation Time Spent With Patient Time: Total time spent is greater than 50% in coordination of care (as documented) at patient's floor/unit and/or counseling patient: QUALITY VTE Deep Vein Thrombosis/Pulmonary Embolism Present on Admission: No
[2019-12-26] MEDS ORDERED: FUROSEMIDE 20 MG/2 ML VIAL IV ONE (08:05)
[2019-12-26] MEDS: SIMETHICONE 80 MG TAB.CHEW CHEWED SCH (08:45)
[2019-12-26] MEDS: SODIUM CHLORIDE 1 GM TABLET PO SCH ×3 (08:45→21:19)
[2019-12-26] MEDS: PHOSPHORUS 250 MG TABLET PO SCH ×4 (08:45→21:19)
--- NOTE | 2019-12-26 13:53 | Discharge Summary ---
Discharge Provider Provider Patient information: Note initiated : 12/26/19 at 1:50 pm Service Date, if different from initiated Date: [] Patient: Jose Echavarria 29 y/o M admitted on 12/24/19 for abd pain. Chief Complaint: [] Date of admission: 12/24/19 13:47 Discharge date: 12/27/19 Primary care physician: Steven Regan Consults: 12/24/19 Consult to Physician [CONS] Stat Comment: Consulting Provider: Bashir Garza Reason For Exam: Physician to Consult 12/24/19 14:47 Consult to Physician [CONS] Routine Comment: Consulting Provider: Karly Paul Reason For Exam: Physician to Consult COURSE Hospital Course Hospital Course: Interval history: History of present illness: Mr. Echavarria is a 29 year old M Presents to the ED with abdominal pain. He states is been dealing with constipation past few days and went to [employer] and received GoLYTELY as well as mag citrate. Is been having a watery stools described as light yellow since then. He still feels abdominal pain did have an x-ray yesterday monitor which showed some gas. He did try some gas pills yesterday which helped a little bit for short time. Today in the ED a CT abdomen pelvis was done which showed some bowel malrotation but no other acute findings. Laboratory significant for sodium of 120 and a potassium 2.8. Patient is on an SSRI for which he is been on for 5 years. Has been drinking several bottles of water a day to try to keep up with fluid intake. Did have some nausea vomiting past 24 hours x 2. 12/24 Abdominal bloating present but a little bit better today. No nausea or vomiting. No new complaints. Small bowel follow-through this morning. 12/25 Abdominal bloating and discomfort slowly improving. No nausea or vomiting. No diarrhea. Small bowel follow-through no obstruction. Sodium coming up slowly. 12/26 Feeling well. Less bloating. Passing gas. No new complaints. Sodium persistently low. Potassium appropriate, consult nephrology. Mom adamant about taking patient home today Case discussed with lumber hacker - We will go ahead and discharge patient with prescription for 3 g of sodium per day and 1500 cc of fluid restrict per day follow-up labs tomorrow and follow-up outpatient with Dr. De Leon have also PCP. A: *Hyponatremia/hypokalemia/hypochloremia: likely 2/2 laxatives, however, is on SSRI -labs consistent with SIADH -sodium persistently low *Intestinal malrotation with nausea/bloating/abd discomfort -No obstruction on small bowel follow-through *Cerebral Palsy, mild deficits: *Anxiety/Tic disorder: on SSRI Discharge diagnosis: Abdominal distention nausea vomiting intestinal malrotation hyponatremia Secondary discharge diagnosis: Hypokalemia cerebral palsy anxiety Time Spent with Patient Time attestation: Total time spent providing and/or coordinating discharge services: Time spent: Greater than 30 minutes EXAM Constitutional Vitals: Temp Pulse Resp BP Pulse Ox 98.0 F 90 16 123/81 98 12/26/19 12:00 12/26/19 12:00 12/26/19 12:00 12/26/19 12:00 12/26/19 12:00 Discharge Data Data Completed and Pending Labs on day of discharge: Labs from last 24 hours 12/26/19 12/25/19 05:23 18:33 POC Hct 35.0 L POC Sodium 122 L Sodium 123 L POC Potassium 2.6 L* Potassium 3.5 POC Chloride 81 L Chloride 84 L Carbon Dioxide 25 POC Total CO2 26 Anion Gap 14.0 POC BUN < 3 L BUN < 2 L Creatinine 0.5 L POC Creatinine 0.3 L GFR Calculation 145 Glucose 160 H POC Glucose 143 H Uric Acid 1.1 L Calcium 8.8 POC WB Ioniz Calcium 0.95 L Phosphorus 1.9 L Magnesium 1.8 Total Bilirubin 0.6 Direct Bilirubin < 0.2 GGT 31 AST 13 ALT 11 Alkaline Phosphatase 74 Lactate Dehydrogenase 154 Total Protein 6.7 Albumin 4.2 Globulin 2.5 Albumin/Globulin Ratio 1.7 Triglycerides 39 Discharge Plan Patient/Caregiver Discharge Instructions Activity: increase activity as tolerated Diet: Regular Diet Activity Restrictions/Additional Instructions: Patient family to contact Steven Regan's office to set up appointment. [phone] Prescriptions: New sodium chloride 1 gram tablet 1,000 mg PO TID Qty: 90 RF: 0 Continued cetirizine [All Day Allergy Relief(cetir)] 10 mg tablet 10 mg PO QDAY RF: 0 ondansetron 4 mg tablet,disintegrating 4 mg PO Q6H PRN (Reason: nausea and vomiting) Qty: 10 RF: 0 hydroxyzine HCl 25 mg tablet 25 mg PO TID PRN (Reason: itching) Qty: 60 RF: 0 sertraline 25 MG tablet 25 mg PO HS RF: 0 Discontinued diphenhydramine HCl 25 MG capsule 50 mg PO HS RF: 0 Other Ambulatory Orders: Basic Metabolic Panel (Routine) Timeframe: 1 Week Location: None Selected Ordered By: Bashir Garza Basic Metabolic Panel (Routine) Timeframe: 1 Day Location: None Selected Ordered By: Bashir Garza Follow Up Plan Follow up with: Steven Regan DO [Primary Care Provider] - Sruthi Matute MD [Physician] - Patient Disposition: Home, Self-Care Prognosis: Good Rehab Potential: Fair Overall status at discharge: patient is progressing back to baseline Discharge Orders: Discharge Order (Routine); Ordered 12/27/19 Ordered By: Bashir Garza QUALITY VTE Deep Vein Thrombosis/Pulmonary Embolism Present on Admission: No
[2019-12-26 16:16] LABS: POC Blood Urea Nitrogen < 3 mg/dl (6-20); POC CO2 27 mmol/L (22-30); POC Calcium, Ionized 1.06 mmol/L (1.16-1.32); POC Chloride 81 mmol/L (96-108); POC Creatinine 0.5 mg/dl (0.7-1.2); POC Glucose, Random 144 mg/dL (70-105); POC Potassium 3.1 mmol/L (3.3-5.1); POC Sodium 124 mmol/L (133-145)
[2019-12-26] MEDS: ONDANSETRON 4 MG/2 ML VIAL IV PRN (20:46)
[2019-12-26] MEDS ORDERED: SERTRALINE 50 MG TABLET PO SCH (21:00)
[2019-12-26] MEDS: POTASSIUM CHLORIDE 20 MEQ TABLET PO PRN (21:19)
[2019-12-27 07:39] LABS: ALT/SGPT 10 U/l (0-40); AST/SGOT 13 U/l (0-37); Albumin 4.2 gm/dL (3.2-5.2); Albumin/Globulin Ratio 1.8 (1.0-2.3); Alkaline Phosphatase 78 U/L (39-117); Bilirubin,Direct < 0.2 mg/dL (0.0-0.3); Bilirubin,Total 0.6 mg/dL (0.0-1.0); Blood Urea Nitrogen 3 mg/dl (6-20); Calcium 8.8 mg/dl (8.6-10.4); Carbon Dioxide 26 mmol/L (22-30); Chloride 85 mmol/L (96-108); Globulin 2.3 gm/dL (2.2-3.7); Glomerular Filtration Rate 145; Glucose 137 mg/dL (70-105); Lactate Dehydrogenase 145 U/L (94-250); Phosphorous 3.1 mg/dL (2.7-4.5); Triglycerides 39 mg/dl (<150); Uric Acid 0.8 mg/dL (2.5-8.0)
--- NOTE | 2019-12-27 07:52 | Internal Med Progress Note ---
SUBJECTIVE Subjective Patient information: Note initiated : 12/27/19 at 7:49 am Service Date, if different from initiated Date: [] Patient: Jose Echavarria 29 y/o M admitted on 12/24/19 for abd pain. Chief Complaint: [] Interval history: Interval history: History of present illness: Mr. Echavarria is a 29 year old M Presents to the ED with abdominal pain. He states is been dealing with constipation past few days and went to [facility] and received GoLYTELY as well as mag citrate. Is been having a watery stools described as light yellow since then. He still feels abdominal pain did have an x-ray yesterday monitor which showed some gas. He did try some gas pills yesterday which helped a little bit for short time. Today in the ED a CT abdomen pelvis was done which showed some bowel malrotation but no other acute findings. Laboratory significant for sodium of 120 and a potassium 2.8. Patient is on an SSRI for which he is been on for 5 years. Has been drinking several bottles of water a day to try to keep up with fluid intake. Did have some nausea vomiting past 24 hours x 2. 12/24 Abdominal bloating present but a little bit better today. No nausea or vomiting. No new complaints. Small bowel follow-through this morning. 12/25 Abdominal bloating and discomfort slowly improving. No nausea or vomiting. No diarrhea. Small bowel follow-through no obstruction. Sodium coming up slowly. 12/26 Feeling well. Less bloating. Passing gas. No new complaints. Sodium persistently low. Potassium appropriate, consult nephrology. Review of Systems: denies headache/fever/chills/nausea/vomiting/chest pain/cough/dyspnea. Otherwise see above. Constitutional Vitals: Vital Signs Temp Pulse Resp BP Pulse Ox 98.0 F 80 18 143/80 96 12/27/19 03:36 12/27/19 03:36 12/27/19 03:36 12/27/19 03:36 12/27/19 03:36 Period Temp Pulse Resp BP Sys/Hanley Pulse Ox Last 24 Hr 98.0 F-98.2 F 80-115 16-20 116-143/80-98 96-99 Intake and Output 12/26/19 12/27/19 12/27/19 21:59 05:59 13:59 Intake Total 675 Output Total 400 700 Balance 275 -700 Weight 49.578 kg Intake & Output: Intake & Output 12/26/19 12/27/19 12/27/19 21:59 05:59 13:59 Intake Total 675 Output Total 400 700 Balance 275 -700 Weight 49.578 kg Intake: Oral 675 Output: Void Amount 400 700 Other: Urine Appearance Clear Clear Urine Color Bright Yellow Bright Yellow Stool Size Small Small Stool Color Brown Stool Consistency Loose Liquid Watery # Voids 1 # Bowel Movements 1 1 Exam: General: Alert, Awake, No acute Distress Eyes/N/T: EOMI, Head/Neck: neck supple, CV: RRR, No murmurs, Pulm: Clear b/l, no wheezing/rhonchi/rales Abd: soft, nontender, +BS x4 Ext: no clubbing/cyanosis/edema Neuro: Alert, no focal deficits, moves all extremities, Skin: warm/dry OBJ DATA Labs CBC & Chem 7: 12/25/19 05:40 12/27/19 05:40 Labs: Abnormal Lab Results 12/27/19 12/26/19 12/26/19 05:40 16:04 05:23 WBC RBC Hgb Hct POC Hct 36.0 L MCV MCHC Gran % Lymph % (Auto) Gran # Lymph # (Auto) [place] # (Auto) POC Sodium 124 L Sodium 123 L 123 L POC Potassium 3.1 L Potassium POC Chloride 81 L Chloride 85 L 84 L Carbon Dioxide Anion Gap POC BUN < 3 L BUN 3 L < 2 L Creatinine 0.5 L 0.5 L POC Creatinine 0.5 L Glucose 137 H 160 H POC Glucose 144 H Osmolality Uric Acid 0.8 L 1.1 L POC WB Ioniz Calcium 1.06 L Phosphorus 1.9 L Cortisol AM Sample Urine Ketones Urine Occult Blood 12/25/19 12/25/19 12/25/19 18:33 05:40 05:40 WBC RBC 4.17 L Hgb 12.1 L Hct 33.9 L POC Hct 35.0 L MCV MCHC Gran % Lymph % (Auto) Gran # Lymph # (Auto) [place] # (Auto) 1.13 H POC Sodium 122 L Sodium 121 L POC Potassium 2.6 L* Potassium 3.2 L POC Chloride 81 L Chloride 81 L Carbon Dioxide Anion Gap POC BUN < 3 L BUN 2 L Creatinine 0.6 L POC Creatinine 0.3 L Glucose 138 H POC Glucose 143 H Osmolality Uric Acid POC WB Ioniz Calcium 0.95 L Phosphorus 2.3 L Cortisol AM Sample Urine Ketones Urine Occult Blood 12/24/19 12/24/19 12/24/19 18:58 13:08 13:00 WBC RBC Hgb Hct POC Hct 32.0 L 31.0 L MCV MCHC Gran % Lymph % (Auto) Gran # Lymph # (Auto) [place] # (Auto) POC Sodium 120 L 123 L Sodium 121 L POC Potassium 2.9 L* 3.0 L Potassium 2.9 L* POC Chloride 80 L 83 L Chloride 82 L Carbon Dioxide 21 L Anion Gap 18.0 H POC BUN < 3 L 4 L BUN Creatinine 0.5 L POC Creatinine 0.4 L 0.4 L Glucose 110 H POC Glucose 131 H 140 H Osmolality Uric Acid POC WB Ioniz Calcium 1.05 L 1.11 L Phosphorus Cortisol AM Sample Urine Ketones 20 A Urine Occult Blood 0.03 A 12/24/19 12/24/19 12/24/19 09:59 09:59 09:59 WBC RBC Hgb Hct POC Hct MCV MCHC Gran % Lymph % (Auto) Gran # Lymph # (Auto) [place] # (Auto) POC Sodium Sodium 120 L POC Potassium Potassium 2.8 L* POC Chloride Chloride 81 L Carbon Dioxide 20 L Anion Gap 19.0 H POC BUN BUN Creatinine 0.6 L POC Creatinine Glucose 124 H POC Glucose Osmolality 251 L Uric Acid POC WB Ioniz Calcium Phosphorus Cortisol AM Sample 54.9 H Urine Ketones Urine Occult Blood 12/24/19 09:59 WBC 12.3 H RBC 4.13 L Hgb 12.1 L Hct 32.7 L POC Hct MCV 79.2 L MCHC 37.0 H Gran % 81.8 H Lymph % (Auto) 8.6 L Gran # 10.09 H Lymph # (Auto) 1.06 L Concho # (Auto) 1.14 H POC Sodium Sodium POC Potassium Potassium POC Chloride Chloride Carbon Dioxide Anion Gap POC BUN BUN Creatinine POC Creatinine Glucose POC Glucose Osmolality Uric Acid POC WB Ioniz Calcium Phosphorus Cortisol AM Sample Urine Ketones Urine Occult Blood Meds: Medications Acetaminophen (Tylenol) 650 mg PO Q6HP PRN PRN Reason: PAIN/FEVER > 101 Hydroxyzine HCl (Atarax) 25 mg PO TIDP PRN PRN Reason: Itching Potassium Chloride 40 meq/ (Dextrose) 520 mls @ 130 mls/hr IV UD PRN PRN Reason: Potassium < 3 Magnesium Sulfate (Magnesium Sulfate) 2 gm in 50 mls @ 50 mls/hr IV UD PRN PRN Reason: Magnesium </= 1.6 Metoclopramide HCl (Reglan) 10 mg IV Q6HP PRN PRN Reason: Nausea And Vomiting Ondansetron HCl (Zofran) 4 mg IV Q4HP PRN PRN Reason: Nausea And Vomiting Last Admin: 12/26/19 20:46 Dose: 4 mg Documented by: Potassium Chloride (Kdur) 40 meq PO UD PRN PRN Reason: Potssium is 3-3.5 Last Admin: 12/26/19 21:19 Dose: 40 meq Documented by: Potassium Chloride (Kdur) 40 meq PO UD PRN PRN Reason: Potassium < 3 Senna (Senokot) 2 tab PO DAILYP PRN PRN Reason: Constipation Sertraline HCl (Zoloft) 25 mg PO HS [facility] Last Admin: 12/26/19 21:19 Dose: 25 mg Documented by: Simethicone (Mylicon) 80 mg CHEWED QIDP PRN PRN Reason: Dyspepsia Sodium Chloride (Saline Flush) 10 ml IV Q8 [facility] Last Admin: 12/26/19 20:47 Dose: 10 ml Documented by: Sodium Chloride (Sodium Chloride) 2 gm PO TID [facility] Last Admin: 12/26/19 21:19 Dose: 2 gm Documented by: A/P Assessment and plan (1) Malrotation of intestine: Status: Acute (2) Acute hypokalemia: Status: Acute (3) Acute hyponatremia: Status: Acute (4) Constipation: Status: Chronic Qualifiers: Constipation type: outlet dysfunction constipation Qualified Code(s): K59.02 - Outlet dysfunction constipation (5) Marijuana use: Status: Chronic (6) Tic disorder: Status: Chronic (7) Infantile cerebral palsy: Status: Chronic Narrative A/P Narrative: A: *Hyponatremia/hypokalemia/hypochloremia: likely 2/2 laxatives, however, is on SSRI -labs consistent with SIADH -sodium persistently low *Intestinal malrotation with nausea/bloating/abd discomfort -No obstruction on small bowel follow-through *Cerebral Palsy, mild deficits: *Anxiety/Tic disorder: on SSRI * P: -nephrology consulted -f/u sodium -fluid restrict, salt tabs -electrolyte replacement prn -Dr. Paul following -simethicone -f/u with pcp regarding SSRI and f/u sodium -ppx: SCD/Ambulation Time Spent With Patient Time: Total time spent is greater than 50% in coordination of care (as documented) at patient's floor/unit and/or counseling patient: QUALITY VTE Deep Vein Thrombosis/Pulmonary Embolism Present on Admission: No
[2019-12-27] MEDS: SODIUM CHLORIDE 1 GM TABLET PO SCH ×2 (08:57→14:50)
[2019-12-27] MEDS: 0.9 % SODIUM CHLORIDE 10 ML SYRINGE IV SCH ×2 (08:57→14:50)
--- NOTE | 2019-12-27 14:23 | Nephrology Consult Note ---
HPI Data of Consult Primary Care Provider: Steven Regan Consult Narrative Patient Information: Note initiated : 12/27/19 at 2:20 pm Service Date, if different from initiated Date: 12/27/2019 Patient: Jose Echavarria 29 y/o M admitted on 12/24/19 for abd pain. Chief Complaint: hyponatremia 29-year-old male who presented to the emergency department 12/24/2019 with abdominal pain. He had been dealing with constipation for a few days, was seen at a different facility, received GoLYTELY as well as magnesium citrate. He subsequently had watery stools described as light yellow. She was found to have hyponatremia, hypokalemia. He was noted to be on SSRI, had been on SSRI since approximately 2014. He has been drinking several bottles of water per day to keep up with his fluid loss. He had nausea and vomiting. cc:: CC: Bashir Garza Review of Systems All systems: reviewed and no additional remarkable complaints except as stated PFSH [facility] Medical History (Updated 12/29/19 @ 08:52 by Sruthi Matute MD) Acute hyponatremia (Inactive) Anxiety (Chronic) Chronic sinusitis (Chronic) Infantile cerebral palsy (Chronic) Kidney stones (Chronic) Marijuana use (Chronic) Tic disorder (Chronic) Surgical History H/O eye surgery (Chronic) Bilateral surgery due to strabismus H/O inguinal hernia repair (Chronic) as Family History Mother Arthritis Grandmother Hypertension, essential Maternal Thyroid disease Maternal Grandfather Heart attack Maternal Unknown Allergic rhinitis Diabetes Heart disease Social History marital status: single smoking status: Never smoker alcohol intake frequency: does not drink substance use type: marijuana MEDS/ALLERGIES Home Medications and Allergies Home Medications Medication Instructions Recorded Confirmed Type cetirizine 10 mg tablet 10 mg PO QDAY 01/13/19 12/24/19 History hydroxyzine HCl 25 mg tablet 25 mg PO TID PRN #60 tab 02/08/19 12/24/19 Rx sertraline 25 mg PO HS 07/08/19 12/24/19 History ondansetron 4 mg disintegrating 4 mg PO Q6H PRN #10 tab 12/23/19 12/24/19 Rx tablet sodium chloride 1 gram tablet 2,000 mg PO TID #90 tab 12/29/19 Rx urea 15 gram oral powder packet 1 packet PO BID 30 Days #60 each 12/29/19 Rx Allergies Allergy/AdvReac Type Severity Reaction Status Date / Time hay fever Allergy Unknown Nasal Uncoded 11/01/19 14:54 Discharge Physical Examination Vital Signs Vital signs: Temp Pulse Resp BP Pulse Ox 36.9 C 84 18 141/88 97 12/27/19 12:00 12/27/19 12:00 12/27/19 12:00 12/27/19 12:00 12/27/19 12:00 General Appearance General appearance: well-nourished EENT EENT: ATNC Neck Neck: no JVD Cardiovascular Cardiology: no murmurs, no rub, no gallops and no edema Gastrointestinal Gastrointestinal: normoactive bowel sounds, no tenderness and no guarding Integumentary Integumentary: warm and dry Neurologic Neurologic: no focal deficit Psychiatric Psychiatric: mood/affect appropriate Results Lab Results Result Diagrams: 12/25/19 05:40 12/27/19 15:03 Lab results: Most recent lab results Calcium 8.8 mg/dl (8.6-10.4) 12/27/19 05:40 Phosphorus 3.1 mg/dL (2.7-4.5) 12/27/19 05:40 Magnesium 1.6 mg/dL (1.6-2.5) 12/27/19 05:40 A/P Assessment and plan (1) Acute hypokalemia: Status: Acute (2) Constipation: Status: Chronic Qualifiers: Constipation type: outlet dysfunction constipation Qualified Code(s): K59.02 - Outlet dysfunction constipation (3) Marijuana use: Status: Chronic (4) Tic disorder: Status: Chronic (5) Infantile cerebral palsy: Status: Chronic (6) Malrotation of intestine: Status: Acute Narrative A/P Narrative: Hyponatremia, chronic, improving, hypovolemic. Secondary to GI losses. Serum sodium 120 on 12/23, 121//, 123 one 12/26. Day 1 Urine sodium, osmolality, potassium TSH, cortisol I/O 675cc/ 1.5L -825cc. positive prior 2 days. received 1.5L LR 12/25/2019 and 40mEq Kcl in d5w discussed with the patient and his mother about risks of severe hyponatremia including seizure, cerebral edema/ life treatening conditions. She wants to take her son home with close monitoring * discharge on 3 gram salt tabs daily * fluid restriction max 1.6 L - explained in detail what fluid meant (not limited to water), voiced understanding * repeat RFP tomorrow afternoon, and thursday. labs reviewed with the patient. patient updated with findings and plan, voiced understanding hemodynamics and volume Time Spent With Patient Time: Total time spent is greater than 50% in coordination of care (as documented) at patient's floor/unit and/or counseling patient:
[2019-12-27 16:04] LABS: Blood Urea Nitrogen 3 mg/dl (6-20); Calcium 9.1 mg/dl (8.6-10.4); Carbon Dioxide 26 mmol/L (22-30); Glomerular Filtration Rate 145; Glucose 146 mg/dL (70-105)
[2019-12-27 16:05] LABS: Chloride 85 mmol/L (96-108)
[2019-12-27] MEDS ORDERED: SERTRALINE 50 MG TABLET PO SCH (21:00)
== END 2019-12-27 18:19 | disposition home or self-care (01) | DRG 641 ==
LOC: ED 09:25 → MEDSUR 13:47
PROVIDERS: ADMIT Internal Medicine; ATTEND Internal Medicine

== ENCOUNTER 2020-05-07 20:34 | Inpatient (IN) ==
--- NOTE | 2020-05-07 22:34 | Emergency Department Note ---
Recheck HPI General Chief Complaint: Recheck/Abnormal Lab/Rx Stated Complaint: Low Sodium Time Seen by Provider: 05/07/20 20:51 Source: patient Mode of arrival: ambulatory Limitations: no limitations History of Present Illness HPI Narrative: Narrative: This pleasant 30-year-old had earlier today a low sodium of 114. He complains of nausea. He states his stomach is been doing a little bit of acting up. He has only had about 2 cups of water today and some Pedialyte also. He has a history of some abdominal discomforts. He has had electrolyte imbalances such that he was admitted even for this in December. Further history from his mother reports that he had some vomiting 4 and 5 days ago and that he was taken off of sodium 14 of this month. He has not used any bowel cleanses this time. His history is a little bit hard to draw out completely or accurately. Related Data Previous Rx's Medication Instructions Recorded ondansetron 4 mg disintegrating 4 mg PO Q6H PRN #30 tab 05/07/20 tablet Allergies Allergy/AdvReac Type Severity Reaction Status Date / Time hay fever Allergy Unknown Nasal Uncoded 05/07/20 15:06 Discharge Review of Systems ROS ROS Narrative: Narrative: No fevers chills or sweats. Weight has stayed about the same Sometimes his chest feels a bit tight or warm. Not now. No cough or shortness of breath No abdominal pain. Nausea is occasional. No vomiting or diarrhea. Has some hi story of chronic constipation. Has not taken any medications for this in the past 5 days. Regarding back pain he says "a little". He denies rashes. No headaches. A little dizzy. Sometimes feels a little bit weak and gets shaky. Admits to chronic anxiety. He has been on sertraline in the past but went off of it because of the hyponatremia potentially being exacerbated or caused by SSRIs. He has not seen an enterprise account executive and he admits to restarting the sertraline although he says he has taken it more intermittently. Another time in the interview he said he was not really taking it. No history of seizures or brain injury. No previous genetic testing or hormones. [facility] Narrative Patient History Narrative: Narrative: Medical/Surgical/Family History All Active Problems (Updated 05/08/20 @ 01:23 by Hermann Pryor DO) Cigarette smoker (Chronic) Hypokalemia (Acute) Hyponatremia (Acute) Hypochloremia (Acute) Elevated cortisol level (Acute) Hyperglycemia (Acute) Anemia (Acute) Abdominal pain (Acute) Acute hyponatremia (Acute) Leg cramps (Acute) Chronic hyponatremia (Acute) Malrotation of intestine (Acute) Acute hypokalemia (Acute) Scoliosis (Chronic) Strain of lumbar paraspinal muscle (Chronic) Constipation (Chronic) Allergic rhinitis (Acute) Marijuana use (Chronic) Tic disorder (Chronic) Chronic sinusitis (Chronic) Infantile cerebral palsy (Chronic) Kidney stones (Chronic) Anxiety (Chronic) Medical History (Updated 05/08/20 @ 01:23 by Hermann Pryor DO) Acute hyponatremia (Inactive) Anxiety (Chronic) Chronic sinusitis (Chronic) Cigarette smoker (Chronic) Hypokalemia (Acute) Infantile cerebral palsy (Chronic) Kidney stones (Chronic) Marijuana use (Chronic) Tic disorder (Chronic) Surgical History H/O eye surgery (Chronic) Bilateral surgery due to strabismus H/O inguinal hernia repair (Chronic) as infant Family History Diabetes Unknown Hypertension, essential Grandmother Maternal Arthritis Mother Heart disease Unknown Heart attack Grandfather Maternal Allergic rhinitis Unknown Thyroid disease Grandmother Maternal Social History Smoking Status: Current every day smoker Alcohol Intake Frequency: does not drink Substance Use: marijuana Exam Narrative Narrative: Narrative: General Limitations: no limitations General appearance: Present alert, in no apparent distress and nontoxic Head Head: Present atraumatic and normocephalic ENT ENT: Present other (Voice is very high pitched generally and feminine.); Absent nasal congestion and hoarse voice Neck Neck: Present trachea midline; Absent lymphadenopathy and thyromegaly Chest Chest: Present symmetric chest wall rise Respiratory Respiratory: Present normal lung sounds bilaterally; Absent respiratory distress, rales/crackles, wheezes, stridor, accessory muscle use and prolonged expiratory phase Cardiovascular Cardiovascular: Present regular rate and normal rhythm; Absent systolic murmur and diastolic murmur Adbominal Abdominal: Present soft; Absent distention, tenderness, guarding, rebound, rigidity, organomegaly and mass Extremities Extremities: Present normal capillary refill and other (Fingers are long and slender. Thumb position is atypically slightly rotated such that more of a horizontal pinchar appearance.); Absent pedal edema, pretibial edema, calf tenderness and cyanosis Back Back: Absent CVA tenderness (R), CVA tenderness (L) and spinous process tenderness Neurological Neurological: Present alert and oriented X3; Absent motor sensory deficit Expanded Neurological Patient oriented to: Present person, place and time Speech: Present fluid speech CRANIAL NERVES: EOM function (II, III, IV, ): Normal and tongue deviation (XII): Normal Psychiatric Psychiatric: Present normal affect, anxious (Quite fidgety and adjusting and readjusting the blanket over his legs and feet.) and serious; Absent depressed, agitated and poor eye contact (At times a little flighty in his eye movements.) Skin Skin: Present warm (WNL) and dry; Absent cyanosis and pallor Course Vital Signs Vital signs: Vital Signs Temperature 97.0 F 05/07/20 20:37 Pulse Rate 93 H 05/07/20 20:37 Respiratory Rate 16 05/07/20 20:37 Blood Pressure 147/83 05/07/20 20:37 Pulse Oximetry (%) 99 05/07/20 20:37 Temperature 97.0 F 05/07/20 20:37 Pulse Rate 85 05/08/20 00:16 Respiratory Rate 18 05/08/20 00:16 Blood Pressure 138/76 05/08/20 00:16 Pulse Oximetry (%) 99 05/08/20 00:16 [facility] Narrative Medical decision making narrative: Narrative: 9:57 PM - spoke with patient's mother, Ruby Tolentino, . She reports that he was diagnosed with infantile cerebral palsy when he was quite small and young. He had multiple tests and work-ups then. He has been fairly high functioning but he does demonstrate significant musculoskeletal weakness, developmental delay, and was recently in physical therapy for general multiple areas. He did graduate from high school from the special education program, [employer]. He has not seen an enterprise account executive. The malrotation of the intestines was a recent diagnosis in December and prior to that did not seem to have bowel problems. He had 3 courses of GoLYTELY or other or similar before his bowels seem to normalize. She is unaware of his voice seeming feminine or high. On the he was taken off the sodium tabs. He has done some vomiting especially 4 and 5 days ago. He was taking stool softeners but has not had any recent bowel prep or oral laxatives like the GoLYTELY previously. He has had poor oral intake since Thursday including some vomiting last Thursday and (5 and 4 days ago). 10:05 PM - I spoke with Dr. Garza, hospitalist, who requests that I speak with Dr. Jamison. He is willing to see patient and admit but would like Dr. Jamison's input. 10:50 PM - spoke with Dr. Jamison who reviewed some patient's chart pointing out the normal TSH and thought that his cortisols were normal but I pointed out several that were in the 45-50 range including 1 recently. He is uncertain why the patient was on sodium tabs. He points out the possibility that when patient starts to vomit that he then only takes water and and does not always have adequate intake. His BUN and creatinine are very low. He recommends obtaining a urine tox screen, lipase, and putting him on normal saline with 20 mEq of potassium at 150 cc/h and rechecking his electrolytes in the morning. I also added a 2 view abdominal x-ray. 10:55 PM - 2 view abdomen on my review does not demonstrate any air-fluid levels or signs of marked dilatation. There is moderate stool present and scattered air bubbles. Official interpretation pending. 11:25 PM - potassium comes back 2.6. He has potassium in his IV fluids but this is a little too low. 10 mEq orally added as an order. Of peculiar note is his blood sugar comes back elevated at 162. UDS, lipase, CBC still pending. 1:07 AM - see labs below. I discussed his admission with hospitalist, Dr. Garza, who accepts. IV rate decreased to 75 cc/h at his request. Lab Data Result diagrams: 05/07/20 21:13 05/07/20 21:09 Labs: Lab Results 05/07/20 05/07/20 05/07/20 Range/Units 21:09 21:13 21:13 WBC 11.1 H (4.5-11.0) K/mcL RBC 4.72 (4.50-5.90) M/mcL Hgb 12.8 L (13.5-16.5) g/dL Hct 34.1 L (41.0-55.0) % MCV 72.2 L (80.0-100.0) fL MCH 27.1 (26.0-34.0) pg MCHC 37.5 H (31.0-36.0) g/dL RDW 11.2 L (11.5-14.5) % Plt Count 247 (140-440) K/mcL MPV 11.3 H (7.4-10.4) fL Neut % (Auto) 74.4 (38.0-78.0) % Lymph % (Auto) 13.7 L (15.0-49.0) % [place] % (Auto) 11.7 (1.0-12.0) % Eos % (Auto) 0.1 (0.0-7.0) % Baso % (Auto) 0.1 (0.0-2.0) % Lymph # (Auto) 1.52 (1.50-4.80) K/mcL [place] # (Auto) 1.30 H (0.10-0.90) K/mcL Eos # (Auto) 0.01 (0.00-0.70) K/mcL Baso # (Auto) 0.01 (0.00-0.20) K/mcL Absolute Neutrophils 8.27 H (1.80-8.00) K/mcL Sodium 114 L* Cancelled (133-145) mmol/L Potassium 2.6 L* Cancelled (3.3-5.1) mmol/L Chloride 74 L Cancelled (96-108) mmol/L Carbon Dioxide 23 Cancelled (22-30) mmol/L Anion Gap 17.0 H Cancelled (8.0-16.0) BUN 7 Cancelled (6-20) mg/dL Creatinine 0.6 L Cancelled (0.7-1.2) mg/dL GFR Calculation 134 Cancelled BUN/Creatinine Ratio Cancelled Glucose 162 H Cancelled (70-105) mg/dL Calcium 9.1 Cancelled (8.6-10.4) mg/dL Total Bilirubin 0.8 Cancelled (0.1-1.0) mg/dL AST 16 Cancelled (<40) U/L ALT 10 Cancelled (<40) U/L Alkaline Phosphatase 104 Cancelled (39-117) U/L Total Protein 7.2 Cancelled (5.9-8.4) gm/dL Albumin 4.7 Cancelled (3.2-5.2) gm/dL Globulin 2.5 Cancelled (2.2-3.7) gm/dL Albumin/Globulin Ratio 1.9 Cancelled (1.0-2.3) Lipase (7-60) U/L Urine Opiates Screen Ur Oxycodone Screen Urine Methadone Screen Ur Barbiturates Screen Ur Phencyclidine Scrn Ur Amphetamines Screen U Benzodiazepines Scrn Urine Cocaine Screen U Marijuana (THC) Screen 05/07/20 05/07/20 Range/Units 22:38 23:21 WBC (4.5-11.0) K/mcL RBC (4.50-5.90) M/mcL Hgb (13.5-16.5) g/dL Hct (41.0-55.0) % MCV (80.0-100.0) fL MCH (26.0-34.0) pg MCHC (31.0-36.0) g/dL RDW (11.5-14.5) % Plt Count (140-440) K/mcL MPV (7.4-10.4) fL Neut % (Auto) (38.0-78.0) % Lymph % (Auto) (15.0-49.0) % [place] % (Auto) (1.0-12.0) % Eos % (Auto) (0.0-7.0) % Baso % (Auto) (0.0-2.0) % Lymph # (Auto) (1.50-4.80) K/mcL [place] # (Auto) (0.10-0.90) K/mcL Eos # (Auto) (0.00-0.70) K/mcL Baso # (Auto) (0.00-0.20) K/mcL Absolute Neutrophils (1.80-8.00) K/mcL Sodium (133-145) mmol/L Potassium (3.3-5.1) mmol/L Chloride (96-108) mmol/L Carbon Dioxide (22-30) mmol/L Anion Gap (8.0-16.0) BUN (6-20) mg/dL Creatinine (0.7-1.2) mg/dL GFR Calculation BUN/Creatinine Ratio Glucose (70-105) mg/dL Calcium (8.6-10.4) mg/dL Total Bilirubin (0.1-1.0) mg/dL AST (<40) U/L ALT (<40) U/L Alkaline Phosphatase (39-117) U/L Total Protein (5.9-8.4) gm/dL Albumin (3.2-5.2) gm/dL Globulin (2.2-3.7) gm/dL Albumin/Globulin Ratio (1.0-2.3) Lipase 14 (7-60) U/L Urine Opiates Screen None detected Ur Oxycodone Screen None detected Urine Methadone Screen None detected Ur Barbiturates Screen None detected Ur Phencyclidine Scrn None detected Ur Amphetamines Screen None detected U Benzodiazepines Scrn None detected Urine Cocaine Screen None detected U Marijuana (THC) Screen Suspect positive A Discharge Plan Patient/Caregiver Discharge Instructions Pt seen by HEALTH PROMOTION EDUCATOR/PA only: No Clinical Impression: Hyponatremia, Hypochloremia, Elevated cortisol level, Hyperglycemia Anemia Qualifiers: Anemia type: unspecified type Qualified Code(s): D64.9 - Anemia, unspecified Patient Disposition: Xfer As Inpt ([facility]) Follow up with: Steven Regan DO [Primary Care Provider] - Prescriptions: No Action ondansetron 4 mg tablet,disintegrating 4 mg PO Q6H PRN (Reason: nausea and vomiting) Qty: 30 RF: 2
[2020-05-07] MEDS ORDERED: NACL 0.9% W/KCL 20MEQ 1,000 ML IV SCH (22:45)
[2020-05-07 23:26] LABS: ALT/SGPT 10 U/L (<40); AST/SGOT 16 U/L (<40); Albumin 4.7 gm/dL (3.2-5.2); Albumin/Globulin Ratio 1.9 (1.0-2.3); Alkaline Phosphatase 104 U/L (39-117); Bilirubin,Total 0.8 mg/dL (0.1-1.0); Blood Urea Nitrogen 7 mg/dL (6-20); Calcium 9.1 mg/dL (8.6-10.4); Carbon Dioxide 23 mmol/L (22-30); Chloride 74 mmol/L (96-108); Globulin 2.5 gm/dL (2.2-3.7); Glomerular Filtration Rate 134; Glucose 162 mg/dL (70-105)
[2020-05-07] MEDS ORDERED: POTASSIUM CHLORIDE 10 MEQ TABLET PO ONE (23:27)
[2020-05-08 00:38] LABS: Basophils # (Auto) 0.01 K/mcL (0.00-0.20); Basophils % (Auto) 0.1 % (0.0-2.0); Eosinophils # (Auto) 0.01 K/mcL (0.00-0.70); Eosinophils % (Auto) 0.1 % (0.0-7.0); Hematocrit 34.1 % (41.0-55.0); Hemoglobin 12.8 g/dL (13.5-16.5); Lymphocytes # (Auto) 1.52 K/mcL (1.50-4.80); Lymphocytes % (Auto) 13.7 % (15.0-49.0); Mean Cell Volume 72.2 fL (80.0-100.0); Mean Corpuscular HGB Conc 37.5 g/dL (31.0-36.0); Mean Platelet Volume 11.3 fL (7.4-10.4); Monocytes % (Auto) 11.7 % (1.0-12.0); Neutrophils % (Auto) 74.4 % (38.0-78.0); Platelet Count 247 K/mcL (140-440); RBC 4.72 M/mcL (4.50-5.90); Red Cell Distribution Width 11.2 % (11.5-14.5); WBC 11.1 K/mcL (4.5-11.0)
[2020-05-08] MEDS ORDERED: NACL 0.9% W/KCL 20MEQ 1,000 ML IV SCH (01:10)
[2020-05-08 01:16] LABS: Amphetamine Screen,Urine None detected; Barbiturate Screen,Urine None detected; Benzodiazepines Screen,Urine None detected; Cannabinoid Screen,Urine Suspect Positive; Cocaine Screen,Urine None detected; Opiate Screen,Urine None detected; Oxycodone, Urine Screen None detected; Phencyclidine Screen,Urine None detected
--- NOTE | 2020-05-08 05:42 | Nephrology Consult Note ---
HPI Data of Consult Primary Care Provider: Steven Regan DO Consult Narrative Patient Information: Note initiated : 05/08/20 at 5:41 am Service Date, if different from initiated Date: [] Patient: Jose Echavarria 30 y/o M admitted on 05/08/20 for Low Sodium. Chief Complaint: [nausea, vomiting and repeated episodes of hyponatremia] cc:: CC: Bashir Garza Patient is a 30-year-old male with a history of spastic cerebral palsy, nephrolithiasis, who was admitted with recurrent electrolyte abnormalities specifically hyponatremia and hypokalemia. The patient was seen and evaluated earlier in the year by Dr. Christine Matute. At that time the patient had a bowel cleanout for constipation and that is when the mother reports that his problems with hyponatremia began. There are no lab work in the EMR prior to 1 year ago. Eventually he was discharged on sodium chloride tablets and his SSRI was discontinued. After the departure of his primary facility designer I began receiving phone calls from his mom about abdominal pain nausea, patient running out of sodium chloride tablets but I was unable to have the patient return any of my messages over the weekend as his cell phone was not set up to receive voicemails. Labs that I did have done on Thursday, May 04 demonstrated normal TSH and cortisol thereby eliminating to common endocrine causes of hyponatremia, documented serum sodium of around 125 and mild hypokalemia. Thursday morning we were able to get a hold patient's mother and she was taking him to see his primary care physician. There is seen and discharged with instructions to go to the emergency room problems occurred. Eventually presented to the emergency room with serum sodium of 114, potassium 2.9 and was admitted for IV hydration with normal saline and potassium. He does not have a diagnosis for why his hyponatremia is occurring. Pertinent lab and historical findings are as follows: Chronic abdominal pain and nausea and vomiting though the relationship in terms of [id number] to hyponatremia is not clear. Marijuana use with urine positive for THC on this admission which raises the question of cyclic vomiting Marked decrease in serum urea nitrogen which would impede the ability to generate a dilute or concentrated urine The absence of any delusional capability on multiple urinalyses suggesting a problem with free water clearance While I cannot prove this there does not seem to be a history of hyponatremia dating back more than a year which begs the question of what is the initiating event. Pertinent labs are as follows: Laboratory Tests 02/16/14 01/13/19 12/24/19 11:27 09:34 13:00 Ur Specific [place] 1.024 1.015 1.030 05/04/20 07:39 Ur Specific [place] 1.017 Laboratory Results - last 48 hr 05/07/20 05/07/20 05/07/20 21:09 21:13 21:13 WBC 11.1 H RBC 4.72 Hgb 12.8 L Hct 34.1 L MCV 72.2 L MCH 27.1 MCHC 37.5 H RDW 11.2 L Plt Count 247 MPV 11.3 H Neut % (Auto) 74.4 Lymph % (Auto) 13.7 L [place] % (Auto) 11.7 Eos % (Auto) 0.1 Baso % (Auto) 0.1 Lymph # (Auto) 1.52 [place] # (Auto) 1.30 H Eos # (Auto) 0.01 Baso # (Auto) 0.01 Absolute Neutrophils 8.27 H Sodium 114 L* Cancelled Potassium 2.6 L* Cancelled Chloride 74 L Cancelled Carbon Dioxide 23 Cancelled Anion Gap 17.0 H Cancelled BUN 7 Cancelled Creatinine 0.6 L Cancelled GFR Calculation 134 Cancelled BUN/Creatinine Ratio Cancelled Glucose 162 H Cancelled Calcium 9.1 Cancelled Total Bilirubin 0.8 Cancelled AST 16 Cancelled ALT 10 Cancelled Alkaline Phosphatase 104 Cancelled Total Protein 7.2 Cancelled Albumin 4.7 Cancelled Globulin 2.5 Cancelled Albumin/Globulin Ratio 1.9 Cancelled Lipase 14 Urine Opiates Screen negative Ur Opiates Confirm Ur Oxycodone Screen negative Urine Methadone Screen negative Ur Methadone Confirm Ur Barbiturates Screen negative Ur Barbiturate Confirm Ur Phencyclidine Scrn negative Urine PCP Confirm Ur Amphetamines Screen negative U Amphetamines Confirm U Benzodiazepines Scrn negative U Benzodiazepine Confm Urine Cocaine Screen negative Urine Cocaine Confirm U Cannabinoids Confirm U Marijuana (THC) Screen Suspect POS Trend of serum sodium Additional history provided by the mother is as follows There is no history of decreased serum sodium prior to December 2019 The mom assures me that the first event that occurred was constipation and caring her son to a freestanding clinic where he was found to be constipated and received stool softeners, magnesium citrate, and GoLYTELY It was after that he presented to the emergency room with hyponatremia. SSRI was discontinued, and eventually the patient discharged on sodium chloride supplementation Sodium supplementation ran out on 04/18/2020 He became symptomatic summer around 2 weeks later. At time they called my nephrology office Dr. Matute had left [facility] and I requested the usual tests be sent for the work-up of hyponatremia Urine had a pH of 6.0 and a specific gravity of 1.017, protein was elevated as was ketone bodies Urine osmolarity was 594 Urine potassium 30.4 Urine sodium 95 Serum sodium 120 potassium 3.4 chloride 83 CO2 22 anion gap 15 BUN 6 creatinine 0.5 serum osmolarity 255 Calcium 9.4 magnesium 1.8 EGFR 144 TSH 2.97 Random cortisol 45 TTKG 3.79 (non-diagnostic) In terms of H2O handling, the urine is concentrated and failing to excrete the excess H2O=>under the influence of ADH Since the patient can concentrate his urine, the medullary gradient is intact. Thus I would treat this patient like SIADH with fluid restriction / Free water restriction. There is no evidence or reason for him to develop a salt loosing nephropathy out of the blue and he is not hypothyroid, another cause of saline sensitive hyponatremia. By the history, Miralax and Mag Citrate could have triggered the first event as his BSA is low and dosing may need to be adjusted to avoid complications of electrolye abnormalities. The patient was allowed free access to fluids w/o restriction and maintained a normal sodium by salt loading and the retention of salt and H20. When the sodium tablets ran out...hyponatremia returned Review of Systems All systems: reviewed and no additional remarkable complaints except as stated Constitutional Constitutional: Present malaise and weakness EENT Eyes: Present as per HPI Cardiovascular Cardiovascular: Present as per HPI Respiratory Respiratory: Present as per HPI Gastrointestinal Gastrointestinal: Present abdominal pain, change in bowel habits, constipation, cramping, nausea and vomiting Musculoskeletal Musculoskeletal: Present as per HPI Integumentary Integumentary: Present as per HPI Neurological Neurological: Present as per HPI Psychiatric Psychiatric: Present as per HPI Endocrine Endocrine: Present fatigue Hematologic/Lymphatic Hematologic/Lymphatic: Present as per HPI Allergic/Immunologic Allergic/Immunologic: Present as per HPI PFSH PFSH All Active Problems (Updated 05/08/20 @ 19:26 by Eyal Jamison MD) 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) Cigarette smoker (Chronic) Hypokalemia (Acute) Hyponatremia (Chronic) Hypochloremia (Acute) Elevated cortisol level (Acute) Hyperglycemia (Acute) Anemia (Acute) Abdominal pain (Chronic) Acute hyponatremia (Acute) Leg cramps (Acute) Malrotation of intestine (Acute) Acute hypokalemia (Acute) Scoliosis (Chronic) Strain of lumbar paraspinal muscle (Chronic) Constipation (Chronic) Allergic rhinitis (Acute) Marijuana use (Chronic) Tic disorder (Chronic) Chronic sinusitis (Chronic) Infantile cerebral palsy (Chronic) Kidney stones (Chronic) Anxiety (Chronic) Medical History (Updated 05/08/20 @ 19:26 by Eyal Jamison MD) Acute hyponatremia (Inactive) Anxiety (Chronic) Chronic sinusitis (Chronic) Cigarette smoker (Chronic) Hypokalemia (Acute) Infantile cerebral palsy (Chronic) Kidney stones (Chronic) Marijuana use (Chronic) Tic disorder (Chronic) Surgical History H/O eye surgery (Chronic) Bilateral surgery due to strabismus H/O inguinal hernia repair (Chronic) as infant Family History Mother Arthritis Grandmother Hypertension, essential Maternal Thyroid disease Maternal Grandfather Heart attack Maternal Unknown Allergic rhinitis Diabetes Heart disease Social History marital status: single smoking status: Never smoker alcohol intake frequency: does not drink substance use type: marijuana MEDS/ALLERGIES Home Medications and Allergies Home Medications Medication Instructions Recorded Confirmed Type ondansetron 4 mg disintegrating 4 mg PO Q6H PRN #30 tab 05/07/20 05/08/20 Rx tablet Allergies Allergy/AdvReac Type Severity Reaction Status Date / Time hay fever Allergy Unknown Nasal Uncoded 05/07/20 15:06 Discharge Physical Examination Vital Signs Vital signs: Temp Pulse Resp BP Pulse Ox 36.1 C 89 18 116/66 97 05/08/20 04:01 05/08/20 04:04 05/08/20 04:04 05/08/20 04:01 05/08/20 04:04 General Appearance General appearance: chronically ill, fatigue and frail EENT EENT: ATNC, PERRL and mucous membranes dry Neck Neck: no JVD, no carotid bruit and supple Respiratory Respiratory: no kyphosis and clear Cardiovascular Cardiology: no murmurs, no rub, no gallops, no edema, regular rate, normal S1 and normal S2 Gastrointestinal Gastrointestinal: no tenderness and no guarding Integumentary Integumentary: no rash and warm and dry Neurologic Neurologic: no focal deficit, no asterixis, alert and oriented x3 and CN 3-12 intact Musculoskeletal Musculoskeletal: no erythema and no clubbing Psychiatric Psychiatric: mood/affect appropriate Results Lab Results Result Diagrams: 05/07/20 21:13 05/08/20 05:36 Lab results: Most recent lab results Calcium Cancelled 05/07/20 21:13 A/P Assessment and plan (1) Hyponatremia: Status: Chronic Comment: No evidence for adrenal or thyroid causes of recurrent hyponatremia, no evidence of salt losing nephropathy, still has the capacity to concentrate presumably dilute his urine, there is no edema so the best diagnosis is SIADH with excess fluid intake (2) Syndrome of inappropriate ADH (SIADH) secretion: Assessment and plan: See above Status: Chronic (3) Abdominal pain: Assessment and plan: I am not sure if this is prior to or after the d evelopment of hyponatremia. Since he went to the outpatient facility with constipation I am assuming he had belly pain before his first episode of water loading causing hyponatremia in someone with underlying SIADH physiology. His treatment should revolve around free water restriction. In addition I would have him abstain from cannabis use as was increased fluid intake and/or inappropriate release of ADH. I cannot get the history to fit with cannabis hyperemesis syndrome, while to good thought I do not think it is at play here Status: Chronic Qualifiers: Abdominal location: generalized Qualified Code(s): R10.84 - Generalized abdominal pain (4) Marijuana use: Assessment and plan: I would ask him to refrain from cannabis use following trying to straighten out his electrolytes for fear that some of the GOLD [employer]ER effects of cannabinoids involve release of ADH driving the syndrome we are seeing. Status: Chronic Narrative A/P Narrative: * Normal saline with potassium and phosphorus * He is at high risk for hypomagnesemia, hypokalemia, and hypophosphatemia from refeeding phenomenon * He should be aggressively free water restricted using hyperosmolar enteral fe edings in place of water such as Nepro or boost as long as he can tolerate this * I would avoid large amounts of polyethylene glycol for bowel hygiene sticking with may be a small once a day doses of MiraLAX 17 g in 8 ounces of water, but this will need to be counted in his 1 L fluid restriction which will be a full quarter of his total daily fluid intake, not counting his dietary supplement * Once his sodium is up around 120 or 125 will stop saline. * Avoid medications associated with SIADH such as SSRIs and avoid cannabis CBD oil and THC oil. * All this was explained to the patient's mom this afternoon Time Spent With Patient Time: Total time spent is greater than 50% in coordination of care (as documented) at patient's floor/unit and/or counseling patient: Total time spent with greater than 50% in coordination of care (as documented) at patient's floor/unit and/or counseling patient:: Greater than 35 minutes
[2020-05-08 07:18] LABS: ALT/SGPT 9 U/L (<40); AST/SGOT 16 U/L (<40); Albumin 4.2 gm/dL (3.2-5.2); Albumin/Globulin Ratio 1.8 (1.0-2.3); Alkaline Phosphatase 96 U/L (39-117); Bilirubin,Direct 0.2 mg/dL (<0.3); Bilirubin,Total 0.7 mg/dL (0.1-1.0); Blood Urea Nitrogen 5 mg/dL (6-20); Calcium 8.6 mg/dL (8.6-10.4); Carbon Dioxide 23 mmol/L (22-30); Chloride 79 mmol/L (96-108); Globulin 2.4 gm/dL (2.2-3.7); Glomerular Filtration Rate 144; Glucose 145 mg/dL (70-105); Lactate Dehydrogenase 155 U/L (135-225); Phosphorous 1.8 mg/dL (2.5-4.5); Triglycerides 42 mg/dL (<150); Uric Acid 3.5 mg/dL (2.5-8.0)
--- NOTE | 2020-05-08 07:35 | Internal Med Progress Note ---
SUBJECTIVE Subjective Patient information: Note initiated : 05/08/20 at 7:31 am Service Date, if different from initiated Date: [] Patient: Jose Echavarria 30 y/o M admitted on 05/08/20 for Low Sodium. Chief Complaint: [] Interval history: Patient sent in by PCP sodium of 114. He saw his primary care Dr. Regan for follow-up visit earlier that day. Has a history of SIADH and is followed with nephrology outpatient and is been on salt tabs as well as discontinuation of his SSRI, though I guess he has taken his SSRI several times recently. Also been on 1 L fluid restrict daily. Hard to say if he is following that guideline. Patient is somewhat of a poor historian. Patient without seizures or any symptoms of acute hyponatremia of the nausea, which did seem to is pretty common for him at baseline. Case also discussed with weight engineer in the ED. Review of Systems: Positives as above. Denies headache/fever/chills/chest pain/cough/dy spnea/diarrhea. Remaining 10 point review of system reviewed negative Constitutional Vitals: Vital Signs Temp Pulse Resp BP Pulse Ox 97.0 F 85 16 128/81 100 05/08/20 04:01 05/08/20 06:01 05/08/20 06:01 05/08/20 06:01 05/08/20 06:01 Period Temp Pulse Resp BP Sys/[place] Pulse Ox Last 24 Hr 97.0 F-98.2 F 80-99 13-27 116-160/66-114 95-100 Intake and Output 05/07/20 05/08/20 05/08/20 21:59 05:59 13:59 Intake Total 200 Output Total 400 150 Balance -200 -150 Weight 49.895 kg 49.061 kg Intake & Output: Intake & Output 05/07/20 05/08/20 05/08/20 21:59 05:59 13:59 Intake Total 200 Output Total 400 150 Balance -200 -150 Weight 49.895 kg 49.061 kg Intake: Oral 200 Output: Void Amount 400 150 Other: Urine Appearance Clear Clear Urine Color Dark Yellow Pale # Bowel Movements 0 Exam: General: Alert, Awake, No acute Distress Eyes/N/T: EOMI, PERRL, Head/Neck: neck supple, normocephalic atraumatic CV: RRR, No murmurs, normal s1/s2 Pulm: Clear b/l, no wheezing/rhonchi/rales Abd: soft, , +BS x4 Ext: no clubbing/cyanosis/edema Neuro: Alert, no focal deficits, moves all extremities, CN 2-12 grossly intact, symmetrical strength b/l upper/lower, sensations intact b/l upper/lower Skin: warm/dry OBJ DATA Labs CBC & Chem 7: 05/07/20 21:13 05/08/20 05:36 Labs: Abnormal Lab Results 05/08/20 05/07/20 05/07/20 05:36 23:21 21:13 WBC 11.1 H Hgb 12.8 L Hct 34.1 L MCV 72.2 L MCHC 37.5 H RDW 11.2 L MPV 11.3 H Lymph % (Auto) 13.7 L [place] # (Auto) 1.30 H Absolute Neutrophils 8.27 H Sodium 114 L* Potassium 3.2 L Chloride 79 L Anion Gap BUN 5 L Creatinine 0.5 L Glucose 145 H Phosphorus 1.8 L U Marijuana (THC) Screen Suspect positive A 05/07/20 21:09 WBC Hgb Hct MCV MCHC RDW MPV Lymph % (Auto) [place] # (Auto) Absolute Neutrophils Sodium 114 L* Potassium 2.6 L* Chloride 74 L Anion Gap 17.0 H BUN Creatinine 0.6 L Glucose 162 H Phosphorus U Marijuana (THC) Screen Meds: Medications Potassium Chloride/Sodium Chloride (Nacl 0.9% W/Kcl 20meq 1000ml) 1,000 mls @ 75 mls/hr IV .[id number] [facility] Last Admin: 05/08/20 02:10 Dose: 75 mls/hr Documented by: Ondansetron HCl (Zofran) 4 mg IV Q4HP PRN PRN Reason: Nausea And Vomiting A/P Narrative A/P Narrative: A: *Acute on chronic hyponatremia with h/o SIADH -was taken off SSRI in recent past, *Infantile Cerebral Palsy, mild deficits: *Anxiety: on SSRI *Intestinal malrotation *bloating/abd discomfort: likely 2/2 malrotation P: -Nephrology following -serial Na -fluid restrict, defer further IVF to nephrology - -ppx: lovenox Time Spent With Patient Time: Total time spent is greater than 50% in coordination of care (as documented) at patient's floor/unit and/or counseling patient: QUALITY VTE Deep Vein Thrombosis/Pulmonary Embolism Present on Admission: No
[2020-05-08] MEDS: ONDANSETRON 4 MG/2 ML VIAL IV PRN ×2 (07:42→19:49)
--- NOTE | 2020-05-08 08:39 | XRay Report ---
HISTORY: Vomiting, constipation FINDINGS: The bowel gas pattern is normal. The stomach is decompressed. There is no evidence of fecal impaction or bowel obstruction. No free intra-abdominal air is present. There is no apparent soft tissue mass. There is calcified plaque in the abdominal aorta at the L3-4 level. There is delayed maturation. The growth plates along the tops of the iliac crests remain open. The patient is 30 years old. A mild levoscoliotic curvature is present in the lumbar spine. Valgus deformities are seen in the hips bilaterally. IMPRESSION: No acute abnormality IMPRESSION: Interpreted and Authenticated by: Darrius Dunaway 05/08/20
[2020-05-08] MEDS ORDERED: SODIUM PHOSPHATE 15 MMOL in 0.9 % SODIUM CHLORIDE 250 ML IV ONE (09:17)
--- NOTE | 2020-05-08 12:54 | Internal Med History&Physical ---
HPI History of Present Illness Patient information: Note initiated : 05/08/20 at 12:53 pm Service Date, if different from initiated Date: [] Patient: Jose Echavarria a 30 y/o M admitted on 05/08/20 for Low Sodium. Chief Complaint: [] History of present illness: Mr. Echavarria is a 30 year old M Patient sent in by PCP sodium of 114. He saw his primary care Dr. Regan for follow-up visit earlier that day. Has a history of SIADH and is followed with nephrology outpatient and is been on salt tabs as well as discontinuation of his SSRI, though I guess he has taken his SSRI several times recently. Also been on 1 L fluid restrict daily. Hard to say if he is following that guideline. Patient is somewhat of a poor historian. Patient without seizures or any symptoms of acute hyponatremia of the nausea, which did seem to is pretty common for him at baseline. Case also discussed with tablet repair in the ED. Review of Systems: Positives as above. Denies headache/fever/chills/chest pain/cough/dyspnea/diarrhea. Remaining 10 point review of system reviewed negative PFSH PFSH All Active Problems (Updated 05/08/20 @ 01:23 by Hermann Pryor DO) Cigarette smoker (Chronic) Hypokalemia (Acute) Hyponatremia (Acute) Hypochloremia (Acute) Elevated cortisol level (Acute) Hyperglycemia (Acute) Anemia (Acute) Abdominal pain (Acute) Acute hyponatremia (Acute) Leg cramps (Acute) Chronic hyponatremia (Acute) Malrotation of intestine (Acute) Acute hypokalemia (Acute) Scoliosis (Chronic) Strain of lumbar paraspinal muscle (Chronic) Constipation (Chronic) Allergic rhinitis (Acute) Marijuana use (Chronic) Tic disorder (Chronic) Chronic sinusitis (Chronic) Infantile cerebral palsy (Chronic) Kidney stones (Chronic) Anxiety (Chronic) Medical History (Updated 05/08/20 @ 01:23 by Hermann Pryor DO) Acute hyponatremia (Inactive) Anxiety (Chronic) Chronic sinusitis (Chronic) Cigarette smoker (Chronic) Hypokalemia (Acute) Infantile cerebral palsy (Chronic) Kidney stones (Chronic) Marijuana use (Chronic) Tic disorder (Chronic) Surgical History H/O eye surgery (Chronic) Bilateral surgery due to strabismus H/O inguinal hernia repair (Chronic) as Family History Mother Arthritis Grandmother Hypertension, essential Maternal Thyroid disease Maternal Grandfather Heart attack Maternal Unknown Allergic rhinitis Diabetes Heart disease Social History marital status: single smoking status: Never smoker alcohol intake frequency: does not drink substance use type: marijuana MEDS/ALLERGIES Home Medications and Allergies Home Medications Medication Instructions Recorded Confirmed Type ondansetron 4 mg disintegrating 4 mg PO Q6H PRN #30 tab 05/07/20 05/08/20 Rx tablet Allergies Allergy/AdvReac Type Severity Reaction Status Date / Time hay fever Allergy Unknown Nasal Uncoded 05/07/20 15:06 Discharge EXAM Constitutional Vitals: Temp Pulse Resp BP Pulse Ox 98.8 F 84 14 135/85 99 05/08/20 12:01 05/08/20 12:01 05/08/20 10:46 05/08/20 12:01 05/08/20 12:01 Exam: General: Alert, Awake, No acute Distress Eyes/N/T: EOMI, PERRL, Head/Neck: neck supple, normocephalic atraumatic CV: RRR, No murmurs, normal s1/s2 Pulm: Clear b/l, no wheezing/rhonchi/rales Abd: soft, , +BS x4 Ext: no clubbing/cyanosis/edema Neuro: Alert, no focal deficits, moves all extremities, CN 2-12 grossly intact, symmetrical strength b/l upper/lower, sensations intact b/l upper/lower Skin: warm/dry DATA Data Completed and Pending Labs: Labs from last 24 hours 05/08/20 05/07/20 05/07/20 05:36 23:21 22:38 WBC RBC Hgb Hct POC Hct MCV MCH MCHC RDW Plt Count MPV Neut % (Auto) Lymph % (Auto) [place] % (Auto) Eos % (Auto) Baso % (Auto) Lymph # (Auto) [place] # (Auto) Eos # (Auto) Baso # (Auto) Absolute Neutrophils POC Sodium Sodium 114 L* POC Potassium Potassium 3.2 L POC Chloride Chloride 79 L Carbon Dioxide 23 POC Total CO2 Anion Gap 12.0 POC BUN BUN 5 L Creatinine 0.5 L POC Creatinine GFR Calculation 144 BUN/Creatinine Ratio Glucose 145 H POC Glucose Uric Acid 3.5 Calcium 8.6 POC WB Ioniz Calcium Phosphorus 1.8 L Magnesium 2.0 Total Bilirubin 0.7 Direct Bilirubin 0.2 GGT 18 AST 16 ALT 9 Alkaline Phosphatase 96 Lactate Dehydrogenase 155 Total Protein 6.6 Albumin 4.2 Globulin 2.4 Albumin/Globulin Ratio 1.8 Triglycerides 42 Lipase 14 Urine Opiates Screen None detected Ur Opiates Confirm Not Reportable Ur Oxycodone Screen None detected Urine Methadone Screen None detected Ur Methadone Confirm Not Reportable Ur Barbiturates Screen None detected Ur Barbiturate Confirm Not Reportable Ur Phencyclidine Scrn None detected Urine PCP Confirm Not Reportable Ur Amphetamines Screen None detected U Amphetamines Confirm Not Reportable U Benzodiazepines Scrn None detected U Benzodiazepine Confm Not Reportable Urine Cocaine Screen None detected Urine Cocaine Confirm Not Reportable U Cannabinoids Confirm Not Reportable U Marijuana (THC) Screen Suspect positive A 05/07/20 05/07/20 05/07/20 21:13 21:13 21:09 WBC 11.1 H RBC 4.72 Hgb 12.8 L Hct 34.1 L POC Hct TNP MCV 72.2 L MCH 27.1 MCHC 37.5 H RDW 11.2 L Plt Count 247 MPV 11.3 H Neut % (Auto) 74.4 Lymph % (Auto) 13.7 L [place] % (Auto) 11.7 Eos % (Auto) 0.1 Baso % (Auto) 0.1 Lymph # (Auto) 1.52 [place] # (Auto) 1.30 H Eos # (Auto) 0.01 Baso # (Auto) 0.01 Absolute Neutrophils 8.27 H POC Sodium TNP Sodium Cancelled 114 L* POC Potassium TNP Potassium Cancelled 2.6 L* POC Chloride TNP Chloride Cancelled 74 L Carbon Dioxide Cancelled 23 POC Total CO2 TNP Anion Gap Cancelled 17.0 H POC BUN TNP BUN Cancelled 7 Creatinine Cancelled 0.6 L POC Creatinine TNP GFR Calculation Cancelled 134 BUN/Creatinine Ratio Cancelled Glucose Cancelled 162 H POC Glucose TNP Uric Acid Calcium Cancelled 9.1 POC WB Ioniz Calcium TNP Phosphorus Magnesium Total Bilirubin Cancelled 0.8 Direct Bilirubin GGT AST Cancelled 16 ALT Cancelled 10 Alkaline Phosphatase Cancelled 104 Lactate Dehydrogenase Total Protein Cancelled 7.2 Albumin Cancelled 4.7 Globulin Cancelled 2.5 Albumin/Globulin Ratio Cancelled 1.9 Triglycerides Lipase Urine Opiates Screen Ur Opiates Confirm Ur Oxycodone Screen Urine Methadone Screen Ur Methadone Confirm Ur Barbiturates Screen Ur Barbiturate Confirm Ur Phencyclidine Scrn Urine PCP Confirm Ur Amphetamines Screen U Amphetamines Confirm U Benzodiazepines Scrn U Benzodiazepine Confm Urine Cocaine Screen Urine Cocaine Confirm U Cannabinoids Confirm U Marijuana (THC) Screen A/P Narrative A/P Narrative: A: *Acute on chronic hyponatremia with h/o SIADH -was taken off SSRI in recent past, *Infantile Cerebral Palsy, mild deficits: *Anxiety/Tic disorder: had been on SSRI, ?recently stopped *h/o congential Intestinal malrotation P: -Nephrology following -serial Na -fluid restrict, defer further IVF to nephrology - -ppx: lovenox Time Spent With Patient Time: Total time spent is greater than 50% in coordination of care (as documented) at patient's floor/unit and/or counseling patient: QUALITY VTE Deep Vein Thrombosis/Pulmonary Embolism Present on Admission: No
[2020-05-08] MEDS ORDERED: SUCRALFATE 1 GM/10 ML ORAL.SUSP PO ONE (13:08)
[2020-05-08] MEDS: NACL 0.9% W/KCL 20MEQ 1,000 ML IV SCH ×2 (13:46→20:58)
[2020-05-08 14:01] LABS: POC Blood Urea Nitrogen < 3 mg/dL (6-20); POC CO2 24 mmol/L (22-30); POC Calcium, Ionized 0.97 mmEq/L (1.16-1.32); POC Chloride 83 mEq/L (96-108); POC Creatinine 0.4 mg/dL (0.6-1.2); POC Glucose, Random 148 mg/dL (70-105); POC Hematocrit 34 % (41-55); POC Sodium 120 mEq/L (133-145)
[2020-05-08] MEDS ORDERED: POTASSIUM CHLORIDE 20 MEQ TABLET PO ONE (14:06)
[2020-05-08 18:10] LABS: POC Blood Urea Nitrogen 3 mg/dL (6-20); POC CO2 24 mmol/L (22-30); POC Calcium, Ionized 1.09 mmEq/L (1.16-1.32); POC Chloride 86 mEq/L (96-108); POC Creatinine 0.4 mg/dL (0.6-1.2); POC Glucose, Random 149 mg/dL (70-105); POC Hematocrit 34 % (41-55); POC Potassium 3.6 mEql/L (3.3-5.1); POC Sodium 123 mEq/L (133-145)
[2020-05-08] MEDS ORDERED: DEXTROSE 5% IN WATER 250 ML IV SCH (18:40)
[2020-05-08 19:01] LABS: Blood Urea Nitrogen 4 mg/dL (6-20); Calcium 8.5 mg/dL (8.6-10.4); Carbon Dioxide 23 mmol/L (22-30); Chloride 88 mmol/L (96-108); Glomerular Filtration Rate 144; Glucose 151 mg/dL (70-105); Phosphorous 1.7 mg/dL (2.5-4.5)
[2020-05-08] MEDS ORDERED: SODIUM PHOSPHATE 30 MMOL in DEXTROSE 5% IN WATER 500 ML IV ONE (20:18)
[2020-05-08] MEDS ORDERED: 0.9 % SODIUM CHLORIDE 1,000 ML IV SCH (20:30)
[2020-05-08 21:17] LABS: POC Blood Urea Nitrogen < 3 mg/dL (6-20); POC CO2 25 mmol/L (22-30); POC Calcium, Ionized 1.09 mmEq/L (1.16-1.32); POC Chloride 84 mEq/L (96-108); POC Creatinine 0.3 mg/dL (0.6-1.2); POC Glucose, Random 139 mg/dL (70-105); POC Hematocrit 34 % (41-55); POC Potassium 3.2 mEql/L (3.3-5.1); POC Sodium 120 mEq/L (133-145)
[2020-05-08] MEDS ORDERED: [UNRECOGNIZED DRUG - OTHER] IV ONE (21:19)
[2020-05-08] MEDS ORDERED: POTASSIUM PHOSPHATE IV ONE (21:19)
[2020-05-08] MEDS ORDERED: DEXTROSE 5% IV ONE (21:19)
[2020-05-08] MEDS ORDERED: POTASSIUM PHOSPHATE 66 MEQ/15 ML VIAL IV ONE (21:58)
[2020-05-09 07:03] LABS: Basophils # (Auto) 0.01 K/mcL (0.00-0.20); Basophils % (Auto) 0.1 % (0.0-2.0); Eosinophils # (Auto) 0.01 K/mcL (0.00-0.70); Eosinophils % (Auto) 0.1 % (0.0-7.0); Hematocrit 34.9 % (41.0-55.0); Hemoglobin 12.4 g/dL (13.5-16.5); Lymphocytes # (Auto) 1.27 K/mcL (1.50-4.80); Lymphocytes % (Auto) 17.8 % (15.0-49.0); Mean Cell Volume 76.4 fL (80.0-100.0); Mean Corpuscular HGB Conc 35.5 g/dL (31.0-36.0); Mean Platelet Volume 10.9 fL (7.4-10.4); Monocytes # (Auto) 1.01 K/mcL (0.10-0.90); Monocytes % (Auto) 14.2 % (1.0-12.0); Neutrophils % (Auto) 67.8 % (38.0-78.0); Platelet Count 192 K/mcL (140-440); RBC 4.57 M/mcL (4.50-5.90); Red Cell Distribution Width 11.8 % (11.5-14.5); WBC 7.1 K/mcL (4.5-11.0)
--- NOTE | 2020-05-09 07:33 | Internal Med Progress Note ---
SUBJECTIVE Subjective Patient information: Note initiated : 05/09/20 at 7:30 am Service Date, if different from initiated Date: [] Patient: Jose Echavarria 30 y/o M admitted on 05/08/20 for Low Sodium. Chief Complaint: [] Interval history: Patient sent in by PCP sodium of 114. He saw his primary care Dr. Regan for follow-up visit earlier that day. Has a history of SIADH and is followed with nephrology outpatient and is been on salt tabs as well as discontinuation of his SSRI, though I guess he has taken his SSRI several times recently. Also been on 1 L fluid restrict daily. Hard to say if he is following that guideline. Patient is somewhat of a poor historian. Patient without seizures or any symptoms of acute hyponatremia of the nausea, which did seem to is pretty common for him at baseline. Case also discussed with tech ed/woodshop teacher in the ED. 05/09 Feeling better. Sodium rising appropriately. No new pains or complaints. Review of Systems: Positives as above. Denies headache/fever/chills/chest pain/cough/dyspnea. Constitutional Vitals: Vital Signs Temp Pulse Resp BP Pulse Ox 98.2 F 74 16 144/91 96 05/09/20 04:03 05/09/20 00:32 05/09/20 04:03 05/09/20 06:01 05/09/20 06:01 Period Temp Pulse Resp BP Sys/Hanley Pulse Ox Last 24 Hr 97.5 F-98.8 F 74-97 14-18 108-171/69-154 96-100 Intake and Output 05/08/20 05/09/20 05/09/20 21:59 05:59 13:59 Intake Total 1906 1229.0909 Output Total 850 875 Balance 1693 293.2304 Weight 50.213 kg Intake & Output: Intake & Output 05/08/20 05/09/20 05/09/20 21:59 05:59 13:59 Intake Total 1906 1229.0909 Output Total 850 875 Balance 7853 051.9341 Weight 50.213 kg Intake: Nourishment/Supplement quantity 240 (ml) IV 3646 817.0956 Dextrose 5% in Water 250 ml @ 250 150 mls/hr IV .Q1H40M [facility] Rx#: [id number] NaCl 0.9% W/KCl 20Meq 1000ML 1, 686 000 ml @ 150 mls/hr IV .Q6H40M [facility] Rx#:[id number] Potassium Phosphate 40 Meq In 509.0909 Dextrose 5%-1/2Ns IV Solution 500 ml @ 127.273 mls/hr IV ONCE ONE Rx#:[id number] Sodium Phosphate 15 Mmol In 255 Sodium Chloride 0.9% 250 ml @ 63.75 mls/hr IV ONCE ONE Rx#: [id number] Oral 715 480 Output: Void Amount 850 875 Other: Meal Dinner Percent of Meal Consumed 50% Feeding Ability Independent Nourishment/Supplement name Nepro Urine Appearance Clear Clear Urine Color Pale Bright Yellow Urine Odor Normal Exam: General: Alert, Awake, No acute Distress Eyes/N/T: EOMI, , Head/Neck: neck supple, CV: RRR, No murmurs, Pulm: Clear b/l, no wheezing/rhonchi/rales Abd: soft, , +BS x4 Ext: no clubbing/cyanosis/edema Neuro: Alert, no focal deficits, moves all extremities, Skin: warm/dry OBJ DATA Labs CBC & Chem 7: 05/09/20 05:36 05/09/20 05:36 Labs: Abnormal Lab Results 05/09/20 05/08/20 05/08/20 05:36 21:02 18:03 WBC Hgb 12.4 L Hct 34.9 L POC Hct 34 L 34 L MCV 76.4 L MCHC RDW MPV 10.9 H Lymph % (Auto) [place] % (Auto) 14.2 H Lymph # (Auto) 1.27 L [place] # (Auto) 1.01 H Absolute Neutrophils POC Sodium 120 L 123 L Sodium 121 L POC Potassium 3.2 L Potassium POC Chloride 84 L 86 L Chloride 88 L Anion Gap POC BUN < 3 L 3 L BUN 4 L Creatinine 0.5 L POC Creatinine 0.3 L 0.4 L Glucose 151 H POC Glucose 139 H 149 H Calcium 8.5 L POC WB Ioniz Calcium 1.09 L 1.09 L Phosphorus 1.7 L U Marijuana (THC) Screen 05/08/20 05/08/20 05/07/20 13:44 05:36 23:21 WBC Hgb Hct POC Hct 34 L MCV MCHC RDW MPV Lymph % (Auto) [place] % (Auto) Lymph # (Auto) [place] # (Auto) Absolute Neutrophils POC Sodium 120 L Sodium 114 L* POC Potassium 3.0 L Potassium 3.2 L POC Chloride 83 L Chloride 79 L Anion Gap POC BUN < 3 L BUN 5 L Creatinine 0.5 L POC Creatinine 0.4 L Glucose 145 H POC Glucose 148 H Calcium POC WB Ioniz Calcium 0.97 L Phosphorus 1.8 L U Marijuana (THC) Screen Suspect positive A 05/07/20 05/07/20 21:13 21:09 WBC 11.1 H Hgb 12.8 L Hct 34.1 L POC Hct MCV 72.2 L MCHC 37.5 H RDW 11.2 L MPV 11.3 H Lymph % (Auto) 13.7 L [place] % (Auto) Lymph # (Auto) [place] # (Auto) 1.30 H Absolute Neutrophils 8.27 H POC Sodium Sodium 114 L* POC Potassium Potassium 2.6 L* POC Chloride Chloride 74 L Anion Gap 17.0 H POC BUN BUN Creatinine 0.6 L POC Creatinine Glucose 162 H POC Glucose Calcium POC WB Ioniz Calcium Phosphorus U Marijuana (THC) Screen Meds: Medications Ondansetron HCl (Zofran) 4 mg IV Q4HP PRN PRN Reason: Nausea And Vomiting Last Admin: 05/08/20 19:49 Dose: 4 mg Documented by: A/P Narrative A/P Narrative: A: *Acute on chronic hyponatremia with h/o SIADH -was taken off SSRI in recent past, *Infantile Cerebral Palsy, mild deficits: *Anxiety/Tic disorder: had been on SSRI, ?recently stopped *h/o congential Intestinal malrotation P: -Nephrology following -serial Na -cont fluid restrict, likely salt tabs needed outpt -avoid cannibis -ppx: lovenox Time Spent With Patient Time: Total time spent is greater than 50% in coordination of care (as documented) at patient's floor/unit and/or counseling patient: QUALITY VTE Deep Vein Thrombosis/Pulmonary Embolism Present on Admission: No
[2020-05-09 08:17] LABS: ALT/SGPT 10 U/L (<40); AST/SGOT 15 U/L (<40); Albumin 4.3 gm/dL (3.2-5.2); Albumin/Globulin Ratio 1.9 (1.0-2.3); Alkaline Phosphatase 97 U/L (39-117); Bilirubin,Direct < 0.2 mg/dL (<0.3); Bilirubin,Total 0.4 mg/dL (0.1-1.0); Blood Urea Nitrogen 4 mg/dL (6-20); Calcium 8.7 mg/dL (8.6-10.4); Carbon Dioxide 24 mmol/L (22-30); Chloride 87 mmol/L (96-108); Globulin 2.3 gm/dL (2.2-3.7); Glomerular Filtration Rate 144; Glucose 120 mg/dL (70-105); Lactate Dehydrogenase 154 U/L (135-225); Phosphorous 2.9 mg/dL (2.5-4.5); Triglycerides 54 mg/dL (<150); Uric Acid 0.9 mg/dL (2.5-8.0)
--- NOTE | 2020-05-09 09:40 | Nephrology Progress Note ---
SUBJECTIVE Subjective Patient information: Note initiated : 05/09/20 at 9:32 am Service Date, if different from initiated Date: [] Patient: Jose Echavarria 30 y/o M admitted on 05/08/20 for Low Sodium. Chief Complaint: [Recurrent hyponatremia with GI issues] As outlined in my note of 05/08/2020 the best diagnosis for this patient is SIADH, complicated by calorie protein malnutrition but he still retains the ability to concentrate his urine suggesting an intact medullary urea gradient despite low serum urea levels. Further complication includes vaping with THC which in my mind triggers additional release of ADH, but there is no evidence of cannabis hyperemesis syndrome. Finally excessive free water intake either in the form of mag citrate and repeated GoLYTELY preps during his first hospit alization in December, or his current admission now where he ran out of salt tablets which was not fixing the problem just masking the problem of excessive water intake in the setting of SIADH. Salient feature of his illness is that it is new in the last 6 months suggesting that something is triggering it and I believe that to be excess free water in an attempt to deal with his constipation and/or THC vaping. As he will be treated with rigorous fluid restriction, protein supplementation with boost or Nepro which are hyperosmolar and do not count in the one quarter a day fluid restriction. He is okay to leave the ICU but needs to remain in the hospital for a few days to assure that his sodium continues its upward trend now that his been volume expanded. He should avoid SSRIs and similar medications that are prone to worsen SIADH. Laboratory Tests 05/09/20 05:36 Sodium 122 L Potassium 3.6 Chloride 87 L Carbon Dioxide 24 Anion Gap 11.0 BUN 4 L Creatinine 0.5 L GFR Calculation 144 Glucose 120 H Uric Acid 0.9 L Calcium 8.7 Phosphorus 2.9 Magnesium 2.1 Albumin 4.3 1 year trend of serum sodium Constitutional Vitals: Vital Signs Temp Pulse Resp BP Pulse Ox 36.9 C 74 16 152/92 99 05/09/20 08:01 05/09/20 00:32 05/09/20 04:03 05/09/20 08:01 05/09/20 08:01 Period Temp Pulse Resp BP Sys/Hanley Pulse Ox Last 24 Hr 36.4 C-37.1 C 74-94 14-18 108-171/69-154 96-100 Intake and Output 05/08/20 05/09/20 05/09/20 21:59 05:59 13:59 Intake Total 1906 1229.0909 100 Output Total 850 875 175 Balance 8412 086.2751 -75 Weight 50.213 kg Physicial Exam: Exam: General: Alert, Awake, No acute Distress. Oriented x 3 Eyes/N/T: EOMI, Head/Neck: neck supple, CV: RRR, No murmurs, Pulm: Clear b/l, no wheezing/rhonchi/rales Abd: soft, mild TTP periumbilical, +BS x4 Ext: no clubbing/cyanosis/edema Neuro: Alert, no focal deficits, moves all extremities, Skin: warm/dry Intake & Output: Intake & Output 05/08/20 05/09/20 05/09/20 21:59 05:59 13:59 Intake Total 1906 1229.0909 100 Output Total 850 875 175 Balance 3315 938.0796 -75 Weight 50.213 kg Intake: Nourishment/Supplement quantity 240 (ml) IV 2754 764.2638 Dextrose 5% in Water 250 ml @ 250 150 mls/hr IV .Q1H40M [facility] Rx#: [id number] NaCl 0.9% W/KCl 20Meq 1000ML 1, 686 000 ml @ 150 mls/hr IV .Q6H40M [facility] Rx#:[id number] Potassium Phosphate 40 Meq In 509.0909 Dextrose 5%-1/2Ns IV Solution 500 ml @ 127.273 mls/hr IV ONCE ONE Rx#:[id number] Sodium Phosphate 15 Mmol In 255 Sodium Chloride 0.9% 250 ml @ 63.75 mls/hr IV ONCE ONE Rx#: [id number] Oral 715 480 100 Output: Void Amount 850 875 175 Other: Meal Dinner Percent of Meal Consumed 50% Feeding Ability Independent Nourishment/Supplement name Nepro Urine Appearance Clear Clear Clear Urine Color Pale Bright Yellow Bright Yellow Urine Odor Normal Normal A/P Assessment and plan (1) Hyponatremia: Status: Chronic Comment: No evidence for adrenal or thyroid causes of recurrent hyponatremia, no evidence of salt losing nephropathy, still has the capacity to concentrate presumably dilute his urine, there is no edema so the best diagnosis is SIADH with excess fluid intake (2) Syndrome of inappropriate ADH (SIADH) secretion: Assessment and plan: See above Status: Chronic (3) Abdominal pain: Assessment and plan: I am not sure if this is prior to or after the development of hyponatremia. Since he went to the outpatient facility with constipation I am assuming he had belly pain before his first episode of water loading causing hyponatremia in someone with underlying SIADH physiology. His treatment should revolve around free water restriction. In addition I would have him abstain from cannabis use as was increased fluid intake and/or inappropriate release of ADH. I cannot get the history to fit with cannabis hyperemesis syndrome, while to good thought I do not think it is at play here Status: Chronic Qualifiers: Abdominal location: generalized Qualified Code(s): R10.84 - Generalized abdominal pain (4) Marijuana use: Assessment and plan: I would ask him to refrain from cannabis use following trying to straighten out his electrolytes for fear that some of the FINANCIAL PLANNING ASSISTANT effects of cannabinoids involve release of ADH driving the syndrome we are seeing. Status: Chronic Narrative A/P Narrative: * Normal saline with potassium and phosphorus has improved electrolytes so D/C'd yesterday * He is at high risk for hypomagnesemia, hypokalemia, and hypophosphatemia from refeeding phenomenon * He should be aggressively free water restricted using hyperosmolar enteral feedings in place of water such as Nepro or boost as long as he can tolerate this * I would avoid large amounts of polyethylene glycol for bowel hygiene sticking with may be a small once a day doses of MiraLAX 17 g in 8 ounces of water, but this will need to be counted in his 1 L fluid restriction which will be a full quarter of his total daily fluid intake, not counting his dietary supplement * Now that his sodium is up around 120 or 125 stopped saline. * Avoid medications associated with SIADH such as SSRIs and avoid cannabis CBD oil and THC oil. * All this was explained to the patient Time Spent With Patient Time: Total time spent is greater than 50% in coordination of care (as documented) at patient's floor/unit and/or counseling patient: Total time spent with greater than 50% in coordination of care (as documented) at patient's floor/unit and/or counseling patient:: Greater than 35 minutes
[2020-05-09] MEDS ORDERED: FLU VACC QS2020-21(6MOS UP)/PF 60 MCG/0.5 ML SYRINGE IM ONE (10:00)
[2020-05-09] MEDS: ENOXAPARIN 30 MG/0.3 ML SYRINGE SQ SCH ×2 (10:00→10:02)
--- NOTE | 2020-05-09 10:54 | Discharge Summary ---
Discharge Provider Provider Patient information: Note initiated : 05/09/20 at 10:53 am Service Date, if different from initiated Date: [] Patient: Jose Echavarria 30 y/o M admitted on 05/08/20 for Low Sodium. Chief Complaint: [] Date of admission: 05/08/20 01:55 Discharge date: 05/11/20 Primary care physician: Steven Regan DO Consults: 05/08/20 07:58 Consult to Physician [CONS] Routine Comment: Consulting Provider: Bashir Garza Reason For Exam: Physician to Consult 05/08/20 09:15 Consult to Physician [CONS] Routine Comment: Consulting Provider: Eyal Jamison Reason For Exam: Physician to Consult Discharge Meds Discharge Medications Home Medications ondansetron 4 mg disintegrating tablet 4 mg PO Q6H PRN #30 tab 05/07/20 [Rx Confirmed 05/08/20 Last Taken 05/07/20 09:00] food supplemt, lactose-reduced [Boost Calorie Smart] 1 each PO BID #60 each 05/11/20 [Rx Last Taken Unknown] sodium chloride 2,000 mg PO BID #60 tab 05/11/20 [Rx Last Taken Unknown] COURSE Hospital Course Hospital course: Patient sent in by PCP sodium of 114. He saw his primary care Dr. Regan for follow-up visit earlier that day. Has a history of SIADH and is followed with nephrology outpatient and is been on salt tabs as well as discontinuation of his SSRI, though I guess he has taken his SSRI several times recently. Also been on 1 L fluid restrict daily. Hard to say if he is following that guideline. Patient is somewhat of a poor historian. Patient without seizures or any symptoms of acute hyponatremia of the nausea, which did seem to is pretty common for him at baseline. Case also discussed with web application developer in the ED. 05/09 Feeling better. Sodium rising appropriately. No new pains or complaints. 05/10 Doing well. No overnight event or new complaints. Awaiting follow-up sodium level. 05/11 Patient doing well. No new complaints. Sodium stable, pt feeling well. A: *Acute on chronic hyponatremia with h/o SIADH -was taken off SSRI in recent past, *Infantile Cerebral Palsy, mild deficits: *Anxiety/Tic disorder: had been on SSRI, ?recently stopped *h/o congential Intestinal malrotation Discharge diagnosis: Acute on chronic hyponatremia Time Spent with Patient Time attestation: Total time spent providing and/or coordinating discharge services: Time spent: Greater than 30 minutes EXAM Constitutional Vitals: Temp Pulse Resp BP Pulse Ox 98.5 F 74 16 150/94 98 05/09/20 08:01 05/09/20 00:32 05/09/20 04:03 05/09/20 10:01 05/09/20 10:01 Discharge Data Data Completed and Pending Labs on day of discharge: Labs from last 24 hours 05/09/20 05/09/20 05/08/20 05:36 05:36 21:02 WBC 7.1 RBC 4.57 Hgb 12.4 L Hct 34.9 L POC Hct 34 L MCV 76.4 L MCH 27.1 MCHC 35.5 RDW 11.8 Plt Count 192 MPV 10.9 H Neut % (Auto) 67.8 Lymph % (Auto) 17.8 [place] % (Auto) 14.2 H Eos % (Auto) 0.1 Baso % (Auto) 0.1 Lymph # (Auto) 1.27 L [place] # (Auto) 1.01 H Eos # (Auto) 0.01 Baso # (Auto) 0.01 Absolute Neutrophils 4.82 POC Sodium 120 L Sodium 122 L POC Potassium 3.2 L Potassium 3.6 POC Chloride 84 L Chloride 87 L Carbon Dioxide 24 POC Total CO2 25 Anion Gap 11.0 POC BUN < 3 L BUN 4 L Creatinine 0.5 L POC Creatinine 0.3 L GFR Calculation 144 Glucose 120 H POC Glucose 139 H Uric Acid 0.9 L Calcium 8.7 POC WB Ioniz Calcium 1.09 L Phosphorus 2.9 Magnesium 2.1 Total Bilirubin 0.4 Direct Bilirubin < 0.2 GGT 19 AST 15 ALT 10 Alkaline Phosphatase 97 Lactate Dehydrogenase 154 Total Protein 6.6 Albumin 4.3 Globulin 2.3 Albumin/Globulin Ratio 1.9 Triglycerides 54 05/08/20 05/08/20 05/07/20 18:03 13:44 21:09 WBC RBC Hgb Hct POC Hct 34 L 34 L TNP MCV MCH MCHC RDW Plt Count MPV Neut % (Auto) Lymph % (Auto) [place] % (Auto) Eos % (Auto) Baso % (Auto) Lymph # (Auto) [place] # (Auto) Eos # (Auto) Baso # (Auto) Absolute Neutrophils POC Sodium 123 L 120 L TNP Sodium 121 L POC Potassium 3.6 3.0 L TNP Potassium 3.8 POC Chloride 86 L 83 L TNP Chloride 88 L Carbon Dioxide 23 POC Total CO2 24 24 TNP Anion Gap 10.0 POC BUN 3 L < 3 L TNP BUN 4 L Creatinine 0.5 L POC Creatinine 0.4 L 0.4 L TNP GFR Calculation 144 Glucose 151 H POC Glucose 149 H 148 H TNP Uric Acid Calcium 8.5 L POC WB Ioniz Calcium 1.09 L 0.97 L TNP Phosphorus 1.7 L Magnesium 2.0 Total Bilirubin Direct Bilirubin GGT AST ALT Alkaline Phosphatase Lactate Dehydrogenase Total Protein Albumin 4.0 Globulin Albumin/Globulin Ratio Triglycerides Discharge Plan Patient/Caregiver Discharge Instructions Activity: increase activity as tolerated Diet: Regular Diet Prescriptions: New sodium chloride 1 gram tablet 2,000 mg PO BID Qty: 60 RF: 0 Boost Calorie Smart Liquid 1 each PO BID Qty: 60 RF: 0 Continued ondansetron 4 mg tablet,disintegrating 4 mg PO Q6H PRN (Reason: nausea and vomiting) Qty: 30 RF: 2 Other Ambulatory Orders: Basic Metabolic Panel (Routine) Timeframe: [id number] Facility: [facility] - Location: Laboratory Ordered By: Eyal Jamison Follow Up Plan Follow up with: Eyal Jamison MD [Physician] - (labs once a week and follow up in 1 month) Steven Regan DO [Primary Care Provider] - Patient Disposition: Home, Self-Care Plan of Treatment: 1 quart per day fluid restriction Swallow pills with Boost dietary supplement available OTC at most grocery stores (may use generic equivalent) Drink 2 bottles of boost a day as a protein supplement While all your other beverages, drinks and liquids such as soup count in the 1 quart a day fluid restriction, the Boost supplement does not count in the fluid restriction Take salt tablets as ordered for now Labs every See me in a month Prognosis: Fair Discharge Orders: Discharge Order (Routine); Ordered 05/11/20 Ordered By: Bashir MENDOZA VTE Deep Vein Thrombosis/Pulmonary Embolism Present on Admission: No
[2020-05-09 15:03] LABS: POC Blood Urea Nitrogen 5 mg/dL (6-20); POC CO2 26 mmol/L (22-30); POC Calcium, Ionized 1.07 mmEq/L (1.16-1.32); POC Chloride 83 mEq/L (96-108); POC Creatinine 0.5 mg/dL (0.6-1.2); POC Glucose, Random 135 mg/dL (70-105); POC Hematocrit 40 % (41-55); POC Potassium 3.4 mEql/L (3.3-5.1); POC Sodium 122 mEq/L (133-145)
[2020-05-09] MEDS ORDERED: SODIUM CHLORIDE 1 GM TABLET PO ONE (15:08)
[2020-05-09] MEDS: ONDANSETRON 4 MG/2 ML VIAL IV PRN (16:41)
[2020-05-09] MEDS: SODIUM CHLORIDE 1 GM TABLET PO SCH (20:10)
--- NOTE | 2020-05-10 07:40 | Internal Med Progress Note ---
SUBJECTIVE Subjective Patient information: Note initiated : 05/10/20 at 7:38 am Service Date, if different from initiated Date: [] Patient: Jose Echavarria 30 y/o M admitted on 05/08/20 for Low Sodium. Chief Complaint: [] Interval history: Patient sent in by PCP sodium of 114. He saw his primary care Dr. Regan for follow-up visit earlier that day. Has a history of SIADH and is followed with nephrology outpatient and is been on salt tabs as well as discontinuation of his SSRI, though I guess he has taken his SSRI several times recently. Also been on 1 L fluid restrict daily. Hard to say if he is following that guideline. Patient is somewhat of a poor historian. Patient without seizures or any symptoms of acute hyponatremia of the nausea, which did seem to is pretty common for him at baseline. Case also discussed with broadband engineer in the ED. 05/09 Feeling better. Sodium rising appropriately. No new pains or complaints. 05/10 Doing well. No overnight event or new complaints. Awaiting follow-up sodium level. Review of Systems: Positives as above. Denies headache/fever/chills/chest pain/cough/dyspnea. Constitutional Vitals: Vital Signs Temp Pulse Resp BP Pulse Ox 98.0 F 81 14 142/90 97 05/10/20 02:38 05/10/20 02:38 05/10/20 02:38 05/10/20 02:38 05/10/20 02:38 Period Temp Pulse Resp BP Sys/Hanley Pulse Ox Last 24 Hr 97.5 F-98.5 F 81-91 14-22 127-153/81-112 95-100 Intake and Output 05/09/20 05/10/20 05/10/20 21:59 05:59 13:59 Intake Total 320 Output Total 100 Balance 220 Weight 50.757 kg Intake & Output: Intake & Output 05/09/20 05/10/20 05/10/20 21:59 05:59 13:59 Intake Total 320 Output Total 100 Balance 220 Weight 50.757 kg Intake: Oral 320 Output: Void Amount 100 Other: Urine Appearance Clear Urine Color Pale # Voids 1 1 Exam: General: Alert, Awake, No acute Distress Eyes/N/T: EOMI, , Head/Neck: neck supple, CV: RRR, No murmurs, Pulm: Clear b/l, no wheezing/rhonchi/rales Abd: soft, , +BS x4 Ext: no clubbing/cyanosis/edema Neuro: Alert, no focal deficits, moves all extremities, Skin: warm/dry OBJ DATA Labs CBC & Chem 7: 05/09/20 05:36 05/09/20 05:36 Labs: Abnormal Lab Results 05/09/20 05/09/20 05/09/20 14:55 05:36 05:36 WBC Hgb 12.4 L Hct 34.9 L POC Hct 40 L MCV 76.4 L MCHC RDW MPV 10.9 H Lymph % (Auto) [place] % (Auto) 14.2 H Lymph # (Auto) 1.27 L [place] # (Auto) 1.01 H Absolute Neutrophils POC Sodium 122 L Sodium 122 L POC Potassium Potassium POC Chloride 83 L Chloride 87 L Anion Gap POC BUN 5 L BUN 4 L Creatinine 0.5 L POC Creatinine 0.5 L Glucose 120 H POC Glucose 135 H Uric Acid 0.9 L Calcium POC WB Ioniz Calcium 1.07 L Phosphorus U Marijuana (THC) Screen 05/08/20 05/08/20 05/08/20 21:02 18:03 13:44 WBC Hgb Hct POC Hct 34 L 34 L 34 L MCV MCHC RDW MPV Lymph % (Auto) [place] % (Auto) Lymph # (Auto) [place] # (Auto) Absolute Neutrophils POC Sodium 120 L 123 L 120 L Sodium 121 L POC Potassium 3.2 L 3.0 L Potassium POC Chloride 84 L 86 L 83 L Chloride 88 L Anion Gap POC BUN < 3 L 3 L < 3 L BUN 4 L Creatinine 0.5 L POC Creatinine 0.3 L 0.4 L 0.4 L Glucose 151 H POC Glucose 139 H 149 H 148 H Uric Acid Calcium 8.5 L POC WB Ioniz Calcium 1.09 L 1.09 L 0.97 L Phosphorus 1.7 L U Marijuana (THC) Screen 05/08/20 05/07/20 05/07/20 05:36 23:21 21:13 WBC 11.1 H Hgb 12.8 L Hct 34.1 L POC Hct MCV 72.2 L MCHC 37.5 H RDW 11.2 L MPV 11.3 H Lymph % (Auto) 13.7 L [place] % (Auto) Lymph # (Auto) [place] # (Auto) 1.30 H Absolute Neutrophils 8.27 H POC Sodium Sodium 114 L* POC Potassium Potassium 3.2 L POC Chloride Chloride 79 L Anion Gap POC BUN BUN 5 L Creatinine 0.5 L POC Creatinine Glucose 145 H POC Glucose Uric Acid Calcium POC WB Ioniz Calcium Phosphorus 1.8 L U Marijuana (THC) Screen Suspect positive A 05/07/20 21:09 WBC Hgb Hct POC Hct MCV MCHC RDW MPV Lymph % (Auto) [place] % (Auto) Lymph # (Auto) [place] # (Auto) Absolute Neutrophils POC Sodium Sodium 114 L* POC Potassium Potassium 2.6 L* POC Chloride Chloride 74 L Anion Gap 17.0 H POC BUN BUN Creatinine 0.6 L POC Creatinine Glucose 162 H POC Glucose Uric Acid Calcium POC WB Ioniz Calcium Phosphorus U Marijuana (THC) Screen Meds: Medications Enoxaparin Sodium (Lovenox) 30 mg SQ DAILY ADA Ondansetron HCl (Zofran) 4 mg IV Q4HP PRN PRN Reason: Nausea And Vomiting Last Admin: 05/09/20 16:41 Dose: 4 mg Documented by: Sodium Chloride (Sodium Chloride) 2 gm PO BID ADA Last Admin: 05/09/20 20:10 Dose: 2 gm Documented by: A/P Narrative A/P Narrative: A: *Acute on chronic hyponatremia with h/o SIADH -was taken off SSRI in recent past, *Infantile Cerebral Palsy, mild deficits: *Anxiety/Tic disorder: had been on SSRI, ?recently stopped *h/o congential Intestinal malrotation P: -Nephrology following -serial Na -cont fluid restrict -salt tabs -avoid cannabis -ppx: lovenox Time Spent With Patient Time: Total time spent is greater than 50% in coordination of care (as documented) at patient's floor/unit and/or counseling patient: QUALITY VTE Deep Vein Thrombosis/Pulmonary Embolism Present on Admission: No
[2020-05-10] MEDS: ONDANSETRON 4 MG/2 ML VIAL IV PRN (07:43)
[2020-05-10] MEDS ORDERED: ONDANSETRON 4 MG ODT TABLET SL PRN (07:48)
[2020-05-10] MEDS: ENOXAPARIN 30 MG/0.3 ML SYRINGE SQ SCH (08:25)
[2020-05-10] MEDS: SODIUM CHLORIDE 1 GM TABLET PO SCH ×2 (08:25→20:26)
[2020-05-10 08:26] LABS: ALT/SGPT 11 U/L (<40); AST/SGOT 16 U/L (<40); Albumin 4.4 gm/dL (3.2-5.2); Albumin/Globulin Ratio 1.8 (1.0-2.3); Alkaline Phosphatase 89 U/L (39-117); Bilirubin,Direct < 0.2 mg/dL (<0.3); Bilirubin,Total 0.5 mg/dL (0.1-1.0); Blood Urea Nitrogen 6 mg/dL (6-20); Calcium 9.2 mg/dL (8.6-10.4); Carbon Dioxide 26 mmol/L (22-30); Chloride 86 mmol/L (96-108); Globulin 2.4 gm/dL (2.2-3.7); Glomerular Filtration Rate 134; Glucose 133 mg/dL (70-105); Lactate Dehydrogenase 181 U/L (135-225); Triglycerides 45 mg/dL (<150); Uric Acid 0.9 mg/dL (2.5-8.0)
--- NOTE | 2020-05-10 09:28 | Nephrology Progress Note ---
SUBJECTIVE Subjective Patient information: Note initiated : 05/10/20 at 9:21 am Service Date, if different from initiated Date: [] Patient: Jose Echavarria 30 y/o M admitted on 05/08/20 for Low Sodium. Chief Complaint: [recurrent hyponatremia] See prior interval Hx and HPI. I feel SIADH is the Dx and excess PO liquids in the landrum initiating feature. Stop THC vaping in case that is triggering ADH release inappropriatly Rigid po fluid restriction of free water to 1 L/day Protein and caloric malnutrition being addressed with hyperosmolar supplements po. Check Ayla and osmo tomorrow Laboratory Tests 05/10/20 05/10/20 05:29 05:29 Sodium 123 L Potassium 3.6 Chloride 86 L Carbon Dioxide 26 BUN 6 Creatinine 0.6 L GFR Calculation 134 Glucose 133 H Uric Acid 0.9 L Calcium 9.2 Phosphorus 3.0 Magnesium 2.2 Prealbumin 20.8 Constitutional Vitals: Vital Signs Temp Pulse Resp BP Pulse Ox 35.7 C L 76 14 138/86 97 05/10/20 07:42 05/10/20 07:42 05/10/20 07:42 05/10/20 07:42 05/10/20 07:42 Period Temp Pulse Resp BP Sys/Hanley Pulse Ox Last 24 Hr 35.7 C-36.8 C 76-91 14-22 127-153/81-112 95-100 Intake and Output 05/09/20 05/10/20 05/10/20 21:59 05:59 13:59 Intake Total 320 Output Total 100 Balance 220 Weight 50.757 kg Intake & Output: Intake & Output 05/09/20 05/10/20 05/10/20 21:59 05:59 13:59 Intake Total 320 Output Total 100 Balance 220 Weight 50.757 kg Intake: Oral 320 Output: Void Amount 100 Other: Urine Appearance Clear Urine Color Pale # Voids 1 1 Physicial Ecan: General: Alert, Awake, No acute Distress. 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 Since he went to the outpatient facility with constipation I am assuming he had belly pain before his first episode of water loading causing hyponatremia in someone with underlying SIADH physiology. His treatment should revolve around free water restriction. In addition I would have him abstain from cannabis use as was increased fluid intake and/or inappropriate release of ADH. I cannot get the history to fit with cannabis hyperemesis syndrome, while to good thought I do not think it is at play here Status: Chronic Qualifiers: Abdominal location: generalized Qualified Code(s): R10.84 - Generalized abdominal pain (4) Marijuana use: Assessment and plan: I would ask him to refrain from cannabis use following trying to straighten out his electrolytes for fear that some of the C NS effects of cannabinoids involve release of ADH driving the syndrome we are seeing. Status: Chronic Narrative A/P Narrative: * Normal saline with potassium and phosphorus has improved electrolytes so D/C' * He is at high risk for hypomagnesemia, hypokalemia, and hypophosphatemia from refeeding phenomenon * He should be aggressively free water restricted using hyperosmolar enteral feedings in place of water such as Nepro or boost as long as he can tolerate this * I would avoid large amounts of polyethylene glycol for bowel hygiene sticking with may be a small once a day doses of MiraLAX 17 g in 8 ounces of water, but this will need to be counted in his 1 L fluid restriction which will be a full quarter of his total daily fluid intake, not counting his dietary supplement * Now that his sodium is up around 120 or 125 stopped saline. * Avoid medications associated with SIADH such as SSRIs and avoid cannabis CBD oil and THC oil. * All this was explained to the patient and his Mom. * If all goes well O/N, anticipate d/c on current regiment tomorrow. * Will check blood and urine electrolytes to see if he will need to restart sodium supplemtation tomorrow before discharge. Time Spent With Patient Time: Total time spent is greater than 50% in coordination of care (as documented) at patient's floor/unit and/or counseling patient: Total time spent with greater than 50% in coordination of care (as documented) at patient's floor/unit and/or counseling patient:: Greater than 35 minutes
--- NOTE | 2020-05-11 07:30 | Internal Med Progress Note ---
SUBJECTIVE Subjective Patient information: Note initiated : 05/11/20 at 7:29 am Service Date, if different from initiated Date: [] Patient: Jose Echavarria 30 y/o M admitted on 05/08/20 for Low Sodium. Chief Complaint: [] Interval history: Patient sent in by PCP sodium of 114. He saw his primary care Dr. Regan for follow-up visit earlier that day. Has a history of SIADH and is followed with nephrology outpatient and is been on salt tabs as well as discontinuation of his SSRI, though I guess he has taken his SSRI several times recently. Also been on 1 L fluid restrict daily. Hard to say if he is following that guideline. Patient is somewhat of a poor historian. Patient without seizures or any symptoms of acute hyponatremia of the nausea, which did seem to is pretty common for him at baseline. Case also discussed with load tester in the ED. 05/09 Feeling better. Sodium rising appropriately. No new pains or complaints. 05/10 Doing well. No overnight event or new complaints. Awaiting follow-up sodium level. 05/11 Patient doing well. No new complaints. Sodium still low. Review of Systems: Positives as above. Denies headache/fever/chills/chest pain/cough/dyspnea. Constitutional Vitals: Vital Signs Temp Pulse Resp BP Pulse Ox 98.5 F 77 16 152/98 97 05/11/20 04:00 05/11/20 04:00 05/11/20 04:00 05/11/20 04:00 05/11/20 04:00 Period Temp Pulse Resp BP Sys/Hanley Pulse Ox Last 24 Hr 96.3 F-98.5 F 73-98 12-16 126-153/78-98 97-98 Intake and Output 05/10/20 05/11/20 05/11/20 21:59 05:59 13:59 Intake Total 960 240 Output Total 70 Balance 960 170 Weight 50.394 kg Intake & Output: Intake & Output 05/10/20 05/11/20 05/11/20 21:59 05:59 13:59 Intake Total 960 240 Output Total 70 Balance 960 170 Weight 50.394 kg Intake: Nourishment/Supplement quantity 240 (ml) Oral 720 240 Output: Void Amount 70 Other: Meal Dinner Percent of Meal Consumed 25% Nourishment/Supplement name nephro # Voids 1 Exam: General: Alert, Awake, No acute Distress Eyes/N/T: EOMI, , Head/Neck: neck supple, CV: RRR, No murmurs, Pulm: Clear b/l, no wheezing/rhonchi/rales Abd: soft, , +BS x4 Ext: no clubbing/cyanosis/edema Neuro: Alert, no focal deficits, moves all extremities, Skin: warm/dry OBJ DATA Labs CBC & Chem 7: 05/09/20 05:36 05/11/20 05:24 Labs: Abnormal Lab Results 05/10/20 05/09/20 05/09/20 05:29 14:55 05:36 Hgb Hct POC Hct 40 L MCV MPV [place] % (Auto) Lymph # (Auto) [place] # (Auto) POC Sodium 122 L Sodium 123 L 122 L POC Potassium POC Chloride 83 L Chloride 86 L 87 L POC BUN 5 L BUN 4 L Creatinine 0.6 L 0.5 L POC Creatinine 0.5 L Glucose 133 H 120 H POC Glucose 135 H Uric Acid 0.9 L 0.9 L Calcium POC WB Ioniz Calcium 1.07 L Phosphorus 05/09/20 05/08/20 05/08/20 05:36 21:02 18:03 Hgb 12.4 L Hct 34.9 L POC Hct 34 L 34 L MCV 76.4 L MPV 10.9 H [place] % (Auto) 14.2 H Lymph # (Auto) 1.27 L [place] # (Auto) 1.01 H POC Sodium 120 L 123 L Sodium 121 L POC Potassium 3.2 L POC Chloride 84 L 86 L Chloride 88 L POC BUN < 3 L 3 L BUN 4 L Creatinine 0.5 L POC Creatinine 0.3 L 0.4 L Glucose 151 H POC Glucose 139 H 149 H Uric Acid Calcium 8.5 L POC WB Ioniz Calcium 1.09 L 1.09 L Phosphorus 1.7 L 05/08/20 13:44 Hgb Hct POC Hct 34 L MCV MPV [place] % (Auto) Lymph # (Auto) [place] # (Auto) POC Sodium 120 L Sodium POC Potassium 3.0 L POC Chloride 83 L Chloride POC BUN < 3 L BUN Creatinine POC Creatinine 0.4 L Glucose POC Glucose 148 H Uric Acid Calcium POC WB Ioniz Calcium 0.97 L Phosphorus Meds: Medications Enoxaparin Sodium (Lovenox) 30 mg SQ DAILY [facility] Last Admin: 05/10/20 08:25 Dose: 30 mg Documented by: Ondansetron HCl (Zofran) 4 mg IV Q4HP PRN PRN Reason: Nausea And Vomiting Last Admin: 05/09/20 16:41 Dose: 4 mg Documented by: Ondansetron HCl (Zofran Odt) 4 mg SL Q4HP PRN PRN Reason: Nausea And Vomiting Last Admin: 05/10/20 08:25 Dose: 4 mg Documented by: Sodium Chloride (Sodium Chloride) 2 gm PO BID [facility] Last Admin: 05/10/20 20:26 Dose: 2 gm Documented by: A/P Narrative A/P Narrative: A: *Acute on chronic hyponatremia with h/o SIADH -was taken off SSRI in recent past, *Infantile Cerebral Palsy, mild deficits: *Anxiety/Tic disorder: had been on SSRI, ?recently stopped *h/o congential Intestinal malrotation P: -Nephrology following -serial Na -cont fluid restrict -salt tabs -avoid cannabis -ppx: lovenox Time Spent With Patient Time: Total time spent is greater than 50% in coordination of care (as documented) at patient's floor/unit and/or counseling patient: QUALITY VTE Deep Vein Thrombosis/Pulmonary Embolism Present on Admission: No
[2020-05-11 07:57] LABS: Blood Urea Nitrogen 7 mg/dL (6-20); Calcium 9.2 mg/dL (8.6-10.4); Carbon Dioxide 26 mmol/L (22-30); Chloride 86 mmol/L (96-108); Glomerular Filtration Rate 144; Glucose 127 mg/dL (70-105)
[2020-05-11] MEDS ORDERED: FUROSEMIDE 20 MG/2 ML VIAL IV ONE (08:09)
--- NOTE | 2020-05-11 08:44 | Nephrology Progress Note ---
SUBJECTIVE Subjective Patient information: Note initiated : 05/11/20 at 8:43 am Service Date, if different from initiated Date: [] Patient: Jose Echavarria 30 y/o M admitted on 05/08/20 for Low Sodium. Chief Complaint: [low sodium and GI sx] Being treated with po fluid restriction and hyperosmolar dietary supplements. Na stable at 123 Urine electrolytes in the absence of IV or po sodium loading in pending. Salt loosing nephropasthy vs siadh with excess free H2O intake or a mixture of both. Laboratory Tests 05/10/20 05/11/20 05/11/20 05:29 05:24 05:24 Sodium 123 L Potassium 3.7 Chloride 86 L Carbon Dioxide 26 Anion Gap 11.0 BUN 7 Creatinine 0.5 L GFR Calculation 144 Glucose 127 H Osmolality 260 L Uric Acid 0.9 L Calcium 9.2 Laboratory Tests 05/11/20 05/11/20 05:30 05:30 Urine Color Yellow Urine Appearance Hazy A Urine pH 8.0 Ur Specific [place] 1.010 Urine Protein Negative Urine Glucose (UA) Negative Urine Ketones Negative Urine Occult Blood Negative Urine Nitrate Negative Urine Bilirubin Negative Ur Leukocyte Esterase Negative Urine Osmolality 360 Ur Random Sodium 83 Ur Random Potassium 14.6 Ur Random Chloride 65 L Constitutional Vitals: Vital Signs Temp Pulse Resp BP Pulse Ox 36.6 C 88 16 153/95 98 05/11/20 07:34 05/11/20 07:34 05/11/20 07:34 05/11/20 07:34 05/11/20 07:34 Period Temp Pulse Resp BP Sys/Hanley Pulse Ox Last 24 Hr 35.9 C-36.9 C 73-98 12-16 126-153/78-98 97-98 Intake and Output 05/10/20 05/11/20 05/11/20 21:59 05:59 13:59 Intake Total 960 240 Output Total 70 Balance 960 170 Weight 50.394 kg Physicial Exan: General: Alert, Awake, No acute Distress. Oriented to 3 spheres Eyes/N/T: EOMI, Neck: neck supple, CV: RRR, No murmurs, Pulm: Clear b/l, no wheezing/rhonchi/rales Abd: soft, mild TTP periumbilical, +BS x4 Ext: no clubbing/cyanosis/edema Neuro: Alert, no focal deficits, moves all extremities, Skin: warm/dry Intake & Output: Intake & Output 05/10/20 05/11/20 05/11/20 21:59 05:59 13:59 Intake Total 960 240 Output Total 70 Balance 960 170 Weight 50.394 kg Intake: Nourishment/Supplement quantity 240 (ml) Oral 720 240 Output: Void Amount 70 Other: Meal Dinner Percent of Meal Consumed 25% Nourishment/Supplement name nephro # Voids 1 A/P Assessment and plan (1) Syndrome of inappropriate ADH (SIADH) secretion: Status: Chronic Comment: triggered by bowel prep last year. This visit n/v lead to increase po clear liquids and also ran out of salt tabs. Restarted salt tablets before I could D/C a salt loosing nephropathy. Outpatient labs suggested this possibility as urine Na high when he was adequately volume expanded. (2) Hyponatremia: Status: Chronic Comment: No evidence for adrenal or thyroid causes of recurrent hyponatremia, no evidence of salt losing nephropathy, still has the capacity to concentrate presumably dilute his urine, there is no edema so the best diagnosis is SIADH with excess fluid intake (3) Hypokalemia: Status: Acute Comment: Resolved Narrative A/P Narrative: 1. Suspect this is SIADH although cannot rule out salt losing nephropathy 2. No more than 1000 cc p.o. fluid restriction, use Boost supplement to increase protein stores and use in place of water to swallow his pills to cut down on his free water intake, which does not count in his 1 quart a day fluid restriction. All this was explained to the patient's mother and the patient himself. 3. Needs to abstain from vaping THC as this may trigger inappropriate release of antidiuretic hormone. 4. He will be discharged with salt tablets per the hospitalist and I will check on his serum sodium level weekly starting May 16. 5. Okay for discharge discussed patient, mother, and hospitalist. Time Spent With Patient Time: Total time spent is greater than 50% in coordination of care (as documented) at patient's floor/unit and/or counseling patient: Total time spent with greater than 50% in coordination of care (as documented) at patient's floor/unit and/or counseling patient:: Greater than 35 minutes
[2020-05-11 08:53] LABS: Appearance,Urine HAZY (Clear); Bilirubin,Urine Negative (Negative); Color,Urine YELLOW; Culture Indicated,Urine No; Glucose,Urine (UA) Negative (Negative); Ketones,Urine Negative (Negative); Leukocyte Esterase,Urine Negative /ug (Negative); Nitrate,Urine Negative (Negative); Protein,Urine Negative (Negative); Urine Blood Negative (Negative); Urobilinogen,Urine Negative
[2020-05-11] MEDS: ENOXAPARIN 30 MG/0.3 ML SYRINGE SQ SCH (08:53)
[2020-05-11] MEDS: SODIUM CHLORIDE 1 GM TABLET PO SCH (08:53)
[2020-05-11] MEDS ORDERED: FUROSEMIDE 40 MG TABLET PO ONE (09:01)
[2020-05-11 09:14] LABS: Potassium,Urine Random 14.6 mmol/L
[2020-05-17 22:01] LABS: Cannabinoid Confirmation POSITIVE
== END 2020-05-11 12:20 | disposition home or self-care (01) | DRG 641 ==
LOC: ED 20:34 → ICU 05-08 01:55 → MEDSUR 05-09 15:45
PROVIDERS: ADMIT Internal Medicine; ATTEND Internal Medicine